=== PATIENT | male | born 1985 | race Caucasian/White ===

== ENCOUNTER 2020-05-27 09:00 | Outpatient (RCR) | payer OTHER, SELFPAY ==
--- NOTE | 2020-05-01 17:30 | PT.OPPOC ---
Physical, Occupational & Speech Therapy At [facility] Current Diagnoses Muscle wasting and atrophy, not elsewhere classified, left hand (05/01/20) Strain of intrinsic muscle, fascia and tendon of right thumb at wrist and hand level, initial encounter (05/01/20) Unspecified injury of unspecified wrist, hand and finger(s), initial encounter (05/01/20) Visit Care Team Role Provider Type Josselin Nelson MD Attending Provider Non-Staff Primary Care Provider Referring Provider Specialty: Medical Address: [address] [place] [address], [id number] Email: Plan Of Care PT-OP-T Assessment and Plan Start: 05/01/20 08:08 Freq: Status: Active Protocol: Document 05/01/20 10:35 LRN (Rec: 05/01/20 12:42 LRN [id number]) Physical Therapy Assessment Rehab Potential Rehabilitation Potential Excellent Evaluation Complexity Number of Personal Factors/Comorbidities 1-2 Number of Body Systems Impaired 4 or More Clinical Presentation at Evaluation Evolving Impairments Impairments Activity Tolerance,Pain,ROM, Soft Tissue Mobility,Strength Goals Four Impairment L hand pain onset with work activities. Short Term Goal (STG) Pt will report no L hand pain with piano playing. STG Duration 06/26/20 Continuum Of Care Manager Goal (LTG) Pt will improve activity tolerance to return back to work at his prior level of function. LTG Duration 07/30/20 Three Impairment Decreased L hand mobility Short Term Goal (STG) Improve L hand CMC jt mobility to be equal to R hand (CMC jt : extension is right - 30 deg' s, left is 22 deg's). STG Duration 06/05/20 Two Impairment Decreased L hand strength with atrophy of hand muscles. Short Term Goal (STG) Improve L hand strength to no less than 4/5 with pain no more than 2/5. STG Duration 06/05/20 Custodial Goal (LTG) Improve L hand cable dispatcher strength to be able to unscrew a clamp without pain or difficulty. LTG Duration 06/26/20 One Impairment Pt lacks self care program & HEP. Short Term Goal (STG) Pt will be educated in proper use of hot/cold and cold packs for pain management. Custodial Goal (LTG) Pt will be independent in a self care HEP to progress towards and maintain achievement of prior level of function. LTG Duration 07/30/20 Assessment Summary Assessment Pt presents with strain of his L thumb adductor muscle. At this time he does not appear to present with neurological symptoms, but further assessment of his neck and UE is needed. If progress is not made in 4 weeks I'd recommend tests to clear is cervical spine from involvement, if symptoms merit assessment, as well as assessment of neurological involvement. 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 The pt will benefit from skilled physical therapy, starting at 2x/week and decreasing to 1x/week, for education in proper hand care, progression of a strengthening and ROM program and progression towards independence on a home program . Physical Therapy Plan Frequency and Duration Frequency of Treatment 2x/Week Plan of Care Start Date 05/01/20 Plan of Care End Date 07/30/20 Therapeutic Interventions Therapeutic Interventions Home Exercise Program,Manual Therapy,Patient/Caregiver Education,Self-Care/Home Management,Soft Tissue Mobilization,Taping, Therapeutic Exercises Modalities Cold Pack/Ice Massage,Hot Packs,Paraffin Bath Next Visit Focus/Plan Next Note Type Treatment Note Next Visit Plan Assess cervical/UE neural involvement and check intrinsic strength. Recheck thumb CMC jt flex ROM and MCP flex/ext ROM. Initiate L hand , wrist, forearm, elbow strengthening, f/b stretch to Left: thumb flexors, Ghazal stretch, & wrist UD's & extensors (stretch into RD & flexion). STM to L hand ADD's, end with CP. HEP, I/S for H/C dips. Progress mccurdy/pincer cable dispatcher strengthening towards return to prior level. Educate further on use of CP. Plan of Care Dates Plan of Care Start Date 05/01/20 Plan of Care End Date 07/30/20 Electronically Signed by: Mely Alan, PT 05/03/20 [id number] Please Sign and Return: I have reviewed this Plan of Care and certify that the skilled therapy services above are required to meet the patient?s needs. Physician Signature Date Printed Name and Credentials Clinical Instructor Signature Printed Name and Credentials
--- NOTE | 2020-05-01 17:30 | PT.OIE ---
Current Diagnoses Muscle wasting and atrophy, not elsewhere classified, left hand (05/01/20) Strain of intrinsic muscle, fascia and tendon of right thumb at wrist and hand level, initial encounter (05/01/20) Unspecified injury of unspecified wrist, hand and finger(s), initial encounter (05/01/20) Past Medical History (Last Updated 01/30/18 @ 20:28 by Randi Kaur PA-C) Kidney stone (Chronic) Visit Care Team Role Provider Type Josselin Nelson MD Attending Provider Non-Staff Primary Care Provider Referring Provider Specialty: Medical Address: [address] [place] [address], [id number] Email: Physical Therapy Initial Evaluation PT-OP-A Visit Information Start: 05/01/20 08:08 Freq: Status: Active Protocol: Document 05/01/20 10:35 LRN (Rec: 05/01/20 12:42 LRN [id number]) Out-Patient Physical Therapy Visit Information Visit Information Visit Type Initial Evaluation Visit Start Time 10:35 Visit Stop Time 12:25 Total Visit Minutes 50 Visit Number 1 Evaluation Information Evaluation Date 05/01/20 Precautions Precautions None PT-OP-B Current Condition Start: 05/01/20 08:08 Freq: Status: Active Protocol: Document 05/01/20 10:35 LRN (Rec: 05/01/20 12:42 LRN [id number]) Current Condition History of Current Condition Onset Date 3-4 months ago Current Complaints 1/10 pain at L thumb IP jt, tender opposition laterally, dorsal. History of Current Condition Has good strength with opposition movement, but when flexing the IP joint he has no strength. R handed. 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 No loss of ROM or dexterity. Plays piano and has noticed if having pain it is at the L thumb IP joint and after long playing has pain at CMC jt into forearm. Prior Treatments and Tests none Future Testing and Treatments Planned MRI & Nerve conduction test. Developmental History Developmental History 2 yrs ago almost cut L thumb due to hitting saw and was told it nicked a tendon ( proximal to jt). He regained full use of thumb. Has sense of funny bone feeling between CMC and MCP jt. Seems to be double jointed (MCP jt pops backward or into positions). 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 L hand was having trouble opening it by end of day. As time progressed, L hand thumb was not being used and had lack of strength. No serious pain just dull ache in MCP jt and IP jt. Treatment Goals Patient/Caregiver Goals Pt goal is to be assessed and determine reason for problem. Inflammation pinching a nerve. Goal is to eliminate lack of strength or problem that is causing lack of strength. Prior Functional Status Baseline Function- ADL's Independent Baseline Function- Mobility Independent Baseline Function- Work/School No difficulty holding onto objects using L thumb. Could unscrew clamps at work. Current Functional Impairments (Reported) Functional Limitations- ADL's Can carry light objects. Washing dishes almost dropped glasses due to slipper and required holding tightly to object. 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 Compensates by not using L thumb and uses R side more. Can't unscrew clamps. 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 PT-OP-C Subjective Start: 05/01/20 08:08 Freq: Status: Active Protocol: Document 05/01/20 10:35 LRN (Rec: 05/03/20 12:03 LRN [id number]) OP-PT Pain Assessment Pain Assessment Grid Paper Pain Assessment Grid Completed Yes Location L hand Pain Location Details Left Thumb AD muscle and CMC joint Intensity 2 Scale Used Numeric (0 - 10) Description Aching Frequency Constant PT-OP-J Posture/Palpation/Skin Start: 05/01/20 08:08 Freq: Status: Active Protocol: Document 05/01/20 10:35 LRN (Rec: 05/03/20 12:03 LRN [id number]) Palpation Assessment Location L thumb AD Palpation Location L thumb AD muscle and CMC jt. Palpation Findings Tenderness Palpation Details Denies palpable pain in L forearm. PT-OP-K Range of Motion Start: 05/01/20 08:08 Freq: Status: Active Protocol: Document 05/01/20 10:35 LRN (Rec: 05/01/20 12:42 LRN [id number]) Wrist Goniometric Range of Motion Wrist Right Wrist ROM WFL Yes Ulnar Deviation Active (degrees) 20 Radial Deviation Active (degrees) 48 Left Wrist ROM WFL No Flexion Active (degrees) 68 Flexion Passive (degrees) 80 Ulnar Deviation Active (degrees) 25 Radial Deviation Active (degrees) 38 Thumb Goniometric Range of Motion Thumb Right MCP Flexion Active (degrees) 50 MCP Flexion Passive (degrees) 60 MCP Extension Active (0 degrees) 0 H Left Thumb ROM WFL No MCP Flexion Active (degrees) 60 MCP Flexion Passive (degrees) 90 Thumb ROM Limitations Comments L thumb MCP jt lacks 10 deg's extension to neutral. PT-OP-L Special Tests Start: 05/01/20 08:08 Freq: Status: Active Protocol: Document 05/01/20 10:35 LRN (Rec: 05/01/20 12:42 LRN [id number]) Special Tests Wrist/Hand Special Tests Phalens Test Results - bilaterally Grind Test of Thumb Test Results - bilaterally Ghazal's Test Results + bilaterally Comments Pain on radial side of wrist bilaterally. PT-OP-M Strength Start: 05/01/20 08:08 Freq: Status: Active Protocol: Document 05/01/20 10:35 LRN (Rec: 05/01/20 12:42 LRN [id number]) Elbow/Forearm Strength Elbow and Forearm Manual Muscle Testing Right Reason Not Measured WFL Left Reason Not Measured WFL Wrist Strength Wrist Manual Muscle Testing Right Reason Not Measured WFL Left Reason Not Measured WFL Finger/Thumb Strength Finger Manual Muscle Testing Right Thumb Reason Not Measured WFL Comments R thumb strength is 5/5 with all motions. Opposition strength is 5/5 for all fingers. Left Thumb Flexion (fingers C8) 4+ Good+ Extension (thumb C8) 5 Normal Adduction 3+ Fair+ Abduction (fingers T1) 4+ Good+ Comments Opposition strength is 5/5 for all fingers. Hand Transmission And Coordination Engineer/Pinch Strength Hand Dominance Hand Dominance Right Hand Strength Right Transmission And Coordination Engineer (lbs) 95 Tip Pinch (lbs) 11 Comments Tip pinch with index finger and thumb Left Transmission And Coordination Engineer (lbs) 75 Tip Pinch (lbs) 5 Comments Tip pinch with index finger and thumb PT-OP-Q Treatments Start: 05/01/20 08:08 Freq: Status: Active Protocol: Document 05/01/20 10:35 LRN (Rec: 05/01/20 12:42 LRN [id number]) Self-Care/Home Management Treatment Education Patient Education Home Exercise Program,Pain Management Other Education Discussed results of evaluation. Briefly discussed thumb ADD strengthening, resisting paper pull from felt hat flanging operator. Briefly discussed use of CP at home for pain management, precautions of using cold pack directly on skin and limiting to 10'. Recommended pt use small cold pack like a stroud stroud budy pack. PT-OP-T Assessment and Plan Start: 05/01/20 08:08 Freq: Status: Active Protocol: Document 05/01/20 10:35 LRN (Rec: 05/01/20 12:42 LRN [id number]) Physical Therapy Assessment Rehab Potential Rehabilitation Potential Excellent Evaluation Complexity Number of Personal Factors/Comorbidities 1-2 Number of Body Systems Impaired 4 or More Clinical Presentation at Evaluation Evolving Impairments Impairments Activity Tolerance,Pain,ROM, Soft Tissue Mobility,Strength Goals Four Impairment L hand pain onset with work activities. Short Term Goal (STG) Pt will report no L hand pain with piano playing. STG Duration 06/26/20 Halfway Goal (LTG) Pt will improve activity tolerance to return back to work at his prior level of function. LTG Duration 07/30/20 Three Impairment Decreased L hand mobility Short Term Goal (STG) Improve L hand CMC jt mobility to be equal to R hand (CMC jt : extension is right - 30 deg' s, left is 22 deg's). STG Duration 06/05/20 Two Impairment Decreased L hand strength with atrophy of hand muscles. Short Term Goal (STG) Improve L hand strength to no less than 4/5 with pain no more than 2/5. STG Duration 06/05/20 Halfway Goal (LTG) Improve L hand felt hat flanging operator strength to be able to unscrew a clamp without pain or difficulty. LTG Duration 06/26/20 One Impairment Pt lacks self care program & HEP. Short Term Goal (STG) Pt will be educated in proper use of hot/cold and cold packs for pain management. Gang Rider Goal (LTG) Pt will be independent in a self care HEP to progress towards and maintain achievement of prior level of function. LTG Duration 07/30/20 Assessment Summary Assessment Pt presents with strain of his L thumb adductor muscle. At this time he does not appear to present with neurological symptoms, but further assessment of his neck and UE is needed. If progress is not made in 4 weeks I'd recommend tests to clear is cervical spine from involvement, if symptoms merit assessment, as well as assessment of neurological involvement. 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 The pt will benefit from skilled physical therapy, starting at 2x/week and decreasing to 1x/week, for education in proper hand care, progression of a strengthening and ROM program and progression towards independence on a home program . Physical Therapy Plan Frequency and Duration Frequency of Treatment 2x/Week Plan of Care Start Date 05/01/20 Plan of Care End Date 07/30/20 Therapeutic Interventions Therapeutic Interventions Home Exercise Program,Manual Therapy,Patient/Caregiver Education,Self-Care/Home Management,Soft Tissue Mobilization,Taping, Therapeutic Exercises Modalities Cold Pack/Ice Massage,Hot Packs,Paraffin Bath Next Visit Focus/Plan Next Note Type Treatment Note Next Visit Plan Assess cervical/UE neural involvement and check intrinsic strength. Recheck thumb CMC jt flex ROM and MCP flex/ext ROM. Initiate L hand , wrist, forearm, elbow strengthening, f/b stretch to Left: thumb flexors, Ghazal stretch, & wrist UD's & extensors (stretch into RD & flexion). STM to L hand ADD's, end with CP. HEP, I/S for H/C dips. Progress mccurdy/pincer felt hat flanging operator strengthening towards return to prior level. Educate further on use of CP.
--- NOTE | 2020-05-06 18:02 | PT.OTN ---
Current Diagnoses Muscle wasting and atrophy, not elsewhere classified, left hand (05/06/20) Strain of intrinsic muscle, fascia and tendon of right thumb at wrist and hand level, initial encounter (05/06/20) Unspecified injury of unspecified wrist, hand and finger(s), initial encounter (05/06/20) Physical Therapy Treatment Note PT-OP-A Visit Information Start: 05/01/20 08:08 Freq: Status: Active Protocol: Document 05/06/20 10:36 LRN (Rec: 05/06/20 12:44 LRN [id number]) Out-Patient Physical Therapy Visit Information Visit Information Visit Type Treatment Note Visit Start Time 10:36 Visit Stop Time 11:20 Total Visit Minutes 44 Visit Number 2 Evaluation Information Evaluation Date 05/01/20 Precautions Precautions None PT-OP-B Current Condition Start: 05/01/20 08:08 Freq: Status: Active Protocol: Document 05/01/20 10:35 LRN (Rec: 05/01/20 12:42 LRN [id number]) Current Condition History of Current Condition Onset Date 3-4 months ago Current Complaints 1/10 pain at L thumb IP jt, tender opposition laterally, dorsal. History of Current Condition Has good strength with opposition movement, but when flexing the IP joint he has no strength. R handed. 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 No loss of ROM or dexterity. Plays piano and has noticed if having pain it is at the L thumb IP joint and after long playing has pain at CMC jt into forearm. Prior Treatments and Tests none Future Testing and Treatments Planned MRI & Nerve conduction test. Developmental History Developmental History 2 yrs ago almost cut L thumb due to hitting saw and was told it nicked a tendon ( proximal to jt). He regained full use of thumb. Has sense of funny bone feeling between CMC and MCP jt. Seems to be double jointed (MCP jt pops backward or into positions). 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 L hand was having trouble opening it by end of day. As time progressed, L hand thumb was not being used and had lack of strength. No serious pain just dull ache in MCP jt and IP jt. Treatment Goals Patient/Caregiver Goals Pt goal is to be assessed and determine reason for problem. Inflammation pinching a nerve. Goal is to eliminate lack of strength or problem that is causing lack of strength. Prior Functional Status Baseline Function- ADL's Independent Baseline Function- Mobility Independent Baseline Function- Work/School No difficulty holding onto objects using L thumb. Could unscrew clamps at work. Current Functional Impairments (Reported) Functional Limitations- ADL's Can carry light objects. Washing dishes almost dropped glasses due to slipper and required holding tightly to object. 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 Compensates by not using L thumb and uses R side more. Can't unscrew clamps. 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 PT-OP-C Subjective Start: 05/01/20 08:08 Freq: Status: Active Protocol: Document 05/06/20 10:36 LRN (Rec: 05/06/20 12:44 LRN [id number]) OP-PT Subjective Patient Comments Patient Comments Did paper (thumb AD strengthening) ex and felt the ms working, but no increase pain. Nerve conduction study approved and will be done in [place]. PT-OP-J Posture/Palpation/Skin Start: 05/01/20 08:08 Freq: Status: Active Protocol: Document 05/01/20 10:35 LRN (Rec: 05/03/20 12:03 LRN [id number]) Palpation Assessment Location L thumb AD Palpation Location L thumb AD muscle and CMC jt. Palpation Findings Tenderness Palpation Details Denies palpable pain in L forearm. PT-OP-K Range of Motion Start: 05/01/20 08:08 Freq: Status: Active Protocol: Document 05/06/20 10:36 LRN (Rec: 05/06/20 12:44 LRN [id number]) Wrist Goniometric Range of Motion Wrist Right Flexion Active (degrees) 68 Flexion Passive (degrees) 90 Extension Active (degrees) 64 Extension Passive (degrees) 90 Left Extension Active (degrees) 68 Extension Passive (degrees) 90 Thumb Goniometric Range of Motion Thumb Right Thumb ROM WFL Yes MCP Flexion Active (degrees) 56 MCP Extension Active (0 degrees) 0 H CMC Flexion Active (degrees) 16 CMC Extension Active (degrees) 14 Left Thumb ROM WFL No MCP Flexion Active (degrees) 50 MCP Flexion Passive (degrees) 90 MCP Extension Active (0 degrees) 0 H CMC Flexion Active (degrees) 4 CMC Extension Active (degrees) 24 PT-OP-L Special Tests Start: 05/01/20 08:08 Freq: Status: Active Protocol: Document 05/01/20 10:35 LRN (Rec: 05/01/20 12:42 LRN [id number]) Special Tests Wrist/Hand Special Tests Phalens Test Results - bilaterally Grind Test of Thumb Test Results - bilaterally Ghazal's Test Results + bilaterally Comments Pain on radial side of wrist bilaterally. PT-OP-M Strength Start: 05/01/20 08:08 Freq: Status: Active Protocol: Document 05/06/20 10:36 LRN (Rec: 05/06/20 12:44 LRN [id number]) Finger/Thumb Strength Finger Manual Muscle Testing Right Thumb Flexion (fingers C8) 5 Normal Extension (thumb C8) 5 Normal Adduction 5 Normal Abduction (fingers T1) 5 Normal Left Thumb Flexion (fingers C8) 5 Normal Extension (thumb C8) 4+ Good+ Adduction 5 Normal Abduction (fingers T1) 4+ Good+ Hand Pyrotechnic Mixer/Pinch Strength Hand Strength Right Comments Mccurdy MMT: (table top) is 5/ 5. Left Comments Mccurdy MMT: (table top) is 4- /5. PT-OP-Q Treatments Start: 05/01/20 08:08 Freq: Status: Active Protocol: Document 05/06/20 10:36 LRN (Rec: 05/06/20 12:44 LRN [id number]) Therapeutic Exercises Sitting Exercises Stretch into wrist flex Sitting Exercise Name Stretch into wrist flex Side left Reps/Minutes 10 x 6 Stretch into wrist ext Sitting Exercise Name Stretch into wrist ext Side left Reps/Minutes 10 x 6 Thumb ADD/AB stretching Sitting Exercise Name Stretch to L thumb AD/AB Side left Reps/Minutes 3' Thumb Flex stretch Sitting Exercise Name Thumb flex stretch with pressure applied at 1st phalanx distally Side left Reps/Minutes 20 x 6 Comments Modified Ghazal position (without wrist UD), ROM taken monalisa Wrist Ext Sitting Exercise Name Wrist ext Side bilateral Resistance 4# hand wgt Reps/Minutes 30x Wrist Flex Sitting Exercise Name Wrist Flex Side bilateral Equipment Used 4# hand wgt Reps/Minutes 30x Supination Sitting Exercise Name Supination Side bilateral Resistance 4# hand weight Reps/Minutes 30x Comments Tight in L extensor ms bellies in forearm Pronation Sitting Exercise Name Pronation Side bilateral Resistance 4# hand weight Reps/Minutes 30x Elbow Curls Sitting Exercise Name Elbow Curls Side bilateral Resistance 10# Equipment Used 10# hand wgt Reps/Minutes 30x Standing Exercises Stretch into RD Standing Exercise Name Stretch into RD Side left Reps/Minutes 10 x 6 Tricep Ext Standing Exercise Name Tricep ext with arms behind trunk and slight elbow flex/ ext Side right Resistance 7# hand wgt Reps/Minutes 30x Comments L thumb decreased hold pressure by end of reps PT-OP-T Assessment and Plan Start: 05/01/20 08:08 Freq: Status: Active Protocol: Document 05/06/20 10:36 LRN (Rec: 05/06/20 12:44 LRN [id number]) Physical Therapy Assessment Goals Four Impairment L hand pain onset with work activities. Short Term Goal (STG) Pt will report no L hand pain with piano playing. STG Duration 06/26/20 Manager Assembly Goal (LTG) Pt will improve activity tolerance to return back to work at his prior level of function. LTG Duration 07/30/20 Three Impairment Decreased L hand mobility ( Thumb: MCP flex 60 L, 50 R) Short Term Goal (STG) Improve L hand CMC jt mobility to be equal to R hand (CMC jt : extension is right - 30 deg' s, left is 22 deg's). (05/06/20: Thumb: CMC jt ( in deg's) flex is 4 L, 16 R, ext 24 L, 14 R; MCP flex 50 L, 56 R) STG Duration 06/05/20 Two Impairment Decreased L hand strength with atrophy of hand muscles. Short Term Goal (STG) Improve L hand strength to no less than 4/5 with pain no more than 2/5. (05/06/20: Intrinsic hand strength was 4+/5 R, 5/5 L) STG Duration 06/05/20 Manager Assembly Goal (LTG) Improve L hand piccolo mechanic strength to be able to unscrew a clamp without pain or difficulty. LTG Duration 06/26/20 One Impairment Pt lacks self care program & HEP. Short Term Goal (STG) Pt will be educated in proper use of hot/cold and cold packs for pain management. Manager Assembly Goal (LTG) Pt will be independent in a self care HEP to progress towards and maintain achievement of prior level of function. LTG Duration 07/30/20 Assessment Summary Assessment He presents with intrinsic weakness of the R hand. Tight in L extensor ms bellies in forearm after forearm exercises. Pt shows mild improvement in R thumb MCP jt mobility after therapy. He tolerated UE strengthening well without any R thumb pain onset; therefore it is doubtful he has cervical involvement. He did have discomfort in lateral distal forearm muscles. Physical Therapy Plan Frequency and Duration Frequency of Treatment 2x/Week Plan of Care Start Date 05/01/20 Plan of Care End Date 07/30/20 Next Visit Focus/Plan Next Note Type Treatment Note Next Visit Plan Check cervical/UE neural involvement and check intrinsic strength. Progress L hand, wrist, forearm, elbow strengthening, f/b stretch to Left: thumb flexors, Ghazal stretch, & wrist UD's & extensors (stretch into RD & flexion). STM to L hand ADD's, end with CP if needed. HEP, I/S for H/C dips. Progress mccurdy/pincer piccolo mechanic strengthening towards return to prior level. Educate further on use of CP.
--- NOTE | 2020-05-08 12:36 | PT.OTN ---
Current Diagnoses Muscle wasting and atrophy, not elsewhere classified, left hand (05/08/20) Strain of intrinsic muscle, fascia and tendon of right thumb at wrist and hand level, initial encounter (05/08/20) Unspecified injury of unspecified wrist, hand and finger(s), initial encounter (05/08/20) Physical Therapy Treatment Note PT-OP-A Visit Information Start: 05/01/20 08:08 Freq: Status: Active Protocol: Document 05/08/20 11:24 LRN (Rec: 05/08/20 12:34 LRN [id number]) Out-Patient Physical Therapy Visit Information Visit Information Visit Type Treatment Note Visit Start Time 11:24 Visit Stop Time 12:15 Total Visit Minutes 49 Visit Number 3 Evaluation Information Evaluation Date 05/01/20 Precautions Precautions None PT-OP-B Current Condition Start: 05/01/20 08:08 Freq: Status: Active Protocol: Document 05/01/20 10:35 LRN (Rec: 05/01/20 12:42 LRN [id number]) Current Condition History of Current Condition Onset Date 3-4 months ago Current Complaints 1/10 pain at L thumb IP jt, tender opposition laterally, dorsal. History of Current Condition Has good strength with opposition movement, but when flexing the IP joint he has no strength. R handed. 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 No loss of ROM or dexterity. Plays piano and has noticed if having pain it is at the L thumb IP joint and after long playing has pain at CMC jt into forearm. Prior Treatments and Tests none Future Testing and Treatments Planned MRI & Nerve conduction test. Developmental History Developmental History 2 yrs ago almost cut L thumb due to hitting saw and was told it nicked a tendon ( proximal to jt). He regained full use of thumb. Has sense of funny bone feeling between CMC and MCP jt. Seems to be double jointed (MCP jt pops backward or into positions). 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 L hand was having trouble opening it by end of day. As time progressed, L hand thumb was not being used and had lack of strength. No serious pain just dull ache in MCP jt and IP jt. Treatment Goals Patient/Caregiver Goals Pt goal is to be assessed and determine reason for problem. Inflammation pinching a nerve. Goal is to eliminate lack of strength or problem that is causing lack of strength. Prior Functional Status Baseline Function- ADL's Independent Baseline Function- Mobility Independent Baseline Function- Work/School No difficulty holding onto objects using L thumb. Could unscrew clamps at work. Current Functional Impairments (Reported) Functional Limitations- ADL's Can carry light objects. Washing dishes almost dropped glasses due to slipper and required holding tightly to object. 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 Compensates by not using L thumb and uses R side more. Can't unscrew clamps. 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 PT-OP-C Subjective Start: 05/01/20 08:08 Freq: Status: Active Protocol: Document 05/08/20 11:24 LRN (Rec: 05/08/20 12:34 LRN [id number]) OP-PT Subjective Patient Comments Patient Comments States he got pain in the L thumb doing paper pull exercise. PT-OP-J Posture/Palpation/Skin Start: 05/01/20 08:08 Freq: Status: Active Protocol: Document 05/01/20 10:35 LRN (Rec: 05/03/20 12:03 LRN [id number]) Palpation Assessment Location L thumb AD Palpation Location L thumb AD muscle and CMC jt. Palpation Findings Tenderness Palpation Details Denies palpable pain in L forearm. PT-OP-K Range of Motion Start: 05/01/20 08:08 Freq: Status: Active Protocol: Document 05/08/20 11:24 LRN (Rec: 05/08/20 12:34 LRN [id number]) Thumb Goniometric Range of Motion Thumb Right CMC Extension Active (degrees) 48 Left CMC Extension Active (degrees) 52 Thumb ROM Limitations Comments Active Thumb AB: 60 deg's bilaterally. CMC ext bilaterally measured with forearm in supination ( hand flat on table) vs with forearm in neutral. PT-OP-L Special Tests Start: 05/01/20 08:08 Freq: Status: Active Protocol: Document 05/01/20 10:35 LRN (Rec: 05/01/20 12:42 LRN [id number]) Special Tests Wrist/Hand Special Tests Phalens Test Results - bilaterally Grind Test of Thumb Test Results - bilaterally Ghazal's Test Results + bilaterally Comments Pain on radial side of wrist bilaterally. PT-OP-M Strength Start: 05/01/20 08:08 Freq: Status: Active Protocol: Document 05/06/20 10:36 LRN (Rec: 05/06/20 12:44 LRN [id number]) Finger/Thumb Strength Finger Manual Muscle Testing Right Thumb Flexion (fingers C8) 5 Normal Extension (thumb C8) 5 Normal Adduction 5 Normal Abduction (fingers T1) 5 Normal Left Thumb Flexion (fingers C8) 5 Normal Extension (thumb C8) 4+ Good+ Adduction 5 Normal Abduction (fingers T1) 4+ Good+ Hand Oracle Application Architect/Pinch Strength Hand Strength Right Comments Mccurdy MMT: (table top) is 5/ 5. Left Comments Mccurdy MMT: (table top) is 4- /5. PT-OP-Q Treatments Start: 05/01/20 08:08 Freq: Status: Active Protocol: Document 05/08/20 11:24 LRN (Rec: 05/08/20 12:34 LRN [id number]) Therapeutic Exercises Sitting Exercises Thumb AD strengthening Sitting Exercise Name Thumb AD w/Yellow Putty Side left Resistance Soft (Yellow) Putty Reps/Minutes 3' Comments Varied tension and strength by moving putty from distal to proximal to CMC. Thumb Flex strengthening Sitting Exercise Name Thumb Flex w/Putty Side left Resistance Firm (Blue) Putty Reps/Minutes 10x Comments v. cuing for painfree pressure Gripping Sitting Exercise Name Putty Gripping Side bilateral Resistance Firm (Blue) Putty Reps/Minutes 2' Comments Training needed for use of putty Stretch into wrist flex Sitting Exercise Name Stretch into wrist flex Side left Reps/Minutes 10 x 3 Stretch into wrist ext Sitting Exercise Name Stretch into wrist ext Side left Reps/Minutes 10 x 3 Thumb ADD/AB stretching Sitting Exercise Name Stretch to L thumb AD/AB Side left Reps/Minutes 2' Thumb Flex stretch Sitting Exercise Name Thumb flex stretch with pressure applied at 1st phalanx distally Side left Reps/Minutes 20 x 6 Comments Modified Ghazal position (without wrist UD), ROM taken monalisa Wrist Ext Sitting Exercise Name Wrist ext Side left Resistance Lev 2 T-Band Reps/Minutes 15x Wrist Flex Sitting Exercise Name Wrist Flex Side left Equipment Used Lev 2 T-Band Reps/Minutes 15x Comments Phy cuing for placement of T- Band on hand to max strengthening Supination Sitting Exercise Name Supination Side bilateral Resistance Lev 2 T-Band Reps/Minutes 15x Comments Phys & v cuing needed to determine appropriate positioning of T-Band for ex Pronation Sitting Exercise Name Pronation Side bilateral Resistance Lev 2 T-Band Reps/Minutes 15x Comments Phys & v cuing for proper positioning Self-Care/Home Management Treatment Education Patient Education Home Exercise Program Other Education Issued & reviewed HEP with appropriate strengths putty ( Yellow & Blue): I/s for strengthening gripping & thumb flex and stretch to thumb AD; Handouts for: Wrist flex, ext, UD, RD, sup, pron & stretch to wrist flexor. PT-OP-R Modalities Start: 05/01/20 08:08 Freq: Status: Active Protocol: Document 05/08/20 11:24 LRN (Rec: 05/08/20 12:34 LRN [id number]) Hot Pack/Cold Pack Treatment Cold Pack Location L hand Patient Position Sitting Treatment Duration (minutes) 5 Patient Tolerance Good PT-OP-T Assessment and Plan Start: 05/01/20 08:08 Freq: Status: Active Protocol: Document 05/08/20 11:24 LRN (Rec: 05/08/20 12:34 LRN [id number]) Physical Therapy Assessment Goals Four Impairment L hand pain onset with work activities. Short Term Goal (STG) Pt will report no L hand pain with piano playing. STG Duration 06/26/20 Principal Ios Developer Goal (LTG) Pt will improve activity tolerance to return back to work at his prior level of function. LTG Duration 07/30/20 Three Impairment Decreased L hand mobility ( Thumb: MCP flex 60 L, 50 R) Short Term Goal (STG) Improve L hand CMC jt mobility to be equal to R hand (CMC jt : extension is right - 30 deg' s, left is 22 deg's). (05/06/20: Thumb: CMC jt ( in deg's) flex is 4 L, 16 R, ext 24 L, 14 R; MCP flex 50 L, 56 R) STG Duration 06/05/20 Two Impairment Decreased L hand strength with atrophy of hand muscles. Short Term Goal (STG) Improve L hand strength to no less than 4/5 with pain no more than 2/5. (05/06/20: Intrinsic hand strength was 4+/5 R, 5/5 L) STG Duration 06/05/20 Principal Ios Developer Goal (LTG) Improve L hand legal instructor strength to be able to unscrew a clamp without pain or difficulty. LTG Duration 06/26/20 One Impairment Pt lacks self care program & HEP. Short Term Goal (STG) Pt will be educated in proper use of hot/cold and cold packs for pain management. Principal Ios Developer Goal (LTG) Pt will be independent in a self care HEP to progress towards and maintain achievement of prior level of function. LTG Duration 07/30/20 Progress Towards Goals Progress Comments Pt tolerates more strengthening before c/o L hand pain. Assessment Summary Assessment Pt had c/o L thumb pain along the ulnar border of the 1st phalanx with thumb AD using yellow putty. No pain with gripping or thumb flexion. Pt has tightness of intrinsic muscles, but appears to be improving because pt tolerates more ex without c/o pain. Pain localized to L thumb Adductors. Physical Therapy Plan Frequency and Duration Frequency of Treatment 2x/Week Plan of Care Start Date 05/01/20 Plan of Care End Date 07/30/20 Next Visit Focus/Plan Next Note Type Treatment Note Next Visit Plan Check cervical/UE neural involvement and add intrinsic strengthening (table top ex). Progress L hand, wrist, forearm, elbow strengthening, f/b stretch to Left: thumb flexors, Ghazal stretch, & wrist UD's & extensors ( stretch into RD & flexion). STM to L hand ADD's, end with CP if needed. HEP, I/S for H/ C dips. Progress mccurdy/ pincer legal instructor strengthening towards return to prior level. Educate further on use of CP .
--- NOTE | 2020-05-13 16:50 | PT.OTN ---
Current Diagnoses Muscle wasting and atrophy, not elsewhere classified, left hand (05/13/20) Strain of intrinsic muscle, fascia and tendon of right thumb at wrist and hand level, initial encounter (05/13/20) Unspecified injury of unspecified wrist, hand and finger(s), initial encounter (05/13/20) Physical Therapy Treatment Note PT-OP-A Visit Information Start: 05/01/20 08:08 Freq: Status: Active Protocol: Document 05/13/20 10:30 LRN (Rec: 05/13/20 11:21 LRN [id number]) Out-Patient Physical Therapy Visit Information Visit Information Visit Type Treatment Note Visit Start Time 10:30 Visit Stop Time 11:15 Total Visit Minutes 45 Visit Number 4 Evaluation Information Evaluation Date 05/01/20 Precautions Precautions None PT-OP-B Current Condition Start: 05/01/20 08:08 Freq: Status: Active Protocol: Document 05/01/20 10:35 LRN (Rec: 05/01/20 12:42 LRN [id number]) Current Condition History of Current Condition Onset Date 3-4 months ago Current Complaints 1/10 pain at L thumb IP jt, tender opposition laterally, dorsal. History of Current Condition Has good strength with opposition movement, but when flexing the IP joint he has no strength. R handed. 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 No loss of ROM or dexterity. Plays piano and has noticed if having pain it is at the L thumb IP joint and after long playing has pain at CMC jt into forearm. Prior Treatments and Tests none Future Testing and Treatments Planned MRI & Nerve conduction test. Developmental History Developmental History 2 yrs ago almost cut L thumb due to hitting saw and was told it nicked a tendon ( proximal to jt). He regained full use of thumb. Has sense of funny bone feeling between CMC and MCP jt. Seems to be double jointed (MCP jt pops backward or into positions). 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 L hand was having trouble opening it by end of day. As time progressed, L hand thumb was not being used and had lack of strength. No serious pain just dull ache in MCP jt and IP jt. Treatment Goals Patient/Caregiver Goals Pt goal is to be assessed and determine reason for problem. Inflammation pinching a nerve. Goal is to eliminate lack of strength or problem that is causing lack of strength. Prior Functional Status Baseline Function- ADL's Independent Baseline Function- Mobility Independent Baseline Function- Work/School No difficulty holding onto objects using L thumb. Could unscrew clamps at work. Current Functional Impairments (Reported) Functional Limitations- ADL's Can carry light objects. Washing dishes almost dropped glasses due to slipper and required holding tightly to object. 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 Compensates by not using L thumb and uses R side more. Can't unscrew clamps. 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 PT-OP-C Subjective Start: 05/01/20 08:08 Freq: Status: Active Protocol: Document 05/13/20 10:30 LRN (Rec: 05/13/20 16:18 LRN [id number]) OP-PT Subjective Patient Comments Patient Comments Pt states he noted onset of tingling in the L thumb and pain in the area of the wrist extensors to the elbow. PT-OP-J Posture/Palpation/Skin Start: 05/01/20 08:08 Freq: Status: Active Protocol: Document 05/01/20 10:35 LRN (Rec: 05/03/20 12:03 LRN [id number]) Palpation Assessment Location L thumb AD Palpation Location L thumb AD muscle and CMC jt. Palpation Findings Tenderness Palpation Details Denies palpable pain in L forearm. PT-OP-K Range of Motion Start: 05/01/20 08:08 Freq: Status: Active Protocol: Document 05/08/20 11:24 LRN (Rec: 05/08/20 12:34 LRN [id number]) Thumb Goniometric Range of Motion Thumb Right CMC Extension Active (degrees) 48 Left CMC Extension Active (degrees) 52 Thumb ROM Limitations Comments Active Thumb AB: 60 deg's bilaterally. CMC ext bilaterally measured with forearm in supination ( hand flat on table) vs with forearm in neutral. PT-OP-L Special Tests Start: 05/01/20 08:08 Freq: Status: Active Protocol: Document 05/01/20 10:35 LRN (Rec: 05/01/20 12:42 LRN [id number]) Special Tests Wrist/Hand Special Tests Phalens Test Results - bilaterally Grind Test of Thumb Test Results - bilaterally Ghazal's Test Results + bilaterally Comments Pain on radial side of wrist bilaterally. PT-OP-M Strength Start: 05/01/20 08:08 Freq: Status: Active Protocol: Document 05/06/20 10:36 LRN (Rec: 05/06/20 12:44 LRN [id number]) Finger/Thumb Strength Finger Manual Muscle Testing Right Thumb Flexion (fingers C8) 5 Normal Extension (thumb C8) 5 Normal Adduction 5 Normal Abduction (fingers T1) 5 Normal Left Thumb Flexion (fingers C8) 5 Normal Extension (thumb C8) 4+ Good+ Adduction 5 Normal Abduction (fingers T1) 4+ Good+ Hand Memorial Mason/Pinch Strength Hand Strength Right Comments Mccurdy MMT: (table top) is 5/ 5. Left Comments Mccurdy MMT: (table top) is 4- /5. PT-OP-Q Treatments Start: 05/01/20 08:08 Freq: Status: Active Protocol: Document 05/13/20 10:30 LRN (Rec: 05/13/20 11:21 LRN [id number]) Therapeutic Exercises Sitting Exercises Thumb AD on towel Sitting Exercise Name L Thumb AD - twisting of towel Reps/Minutes 3' Comments Phy cuing to bring awareness of us of L thumb AD Thumb AD strengthening Sitting Exercise Name Thumb AD w/towel - 2 layers Side left Resistance towel Reps/Minutes 2' Comments Varied tension and strength Stretch into wrist flex Sitting Exercise Name Stretch into wrist flex Side left Reps/Minutes 10 x 3 Stretch into wrist ext Sitting Exercise Name Stretch into wrist ext Side left Reps/Minutes 2' Thumb ADD/AB stretching Sitting Exercise Name Stretch to L thumb AD/AB Side left Reps/Minutes 2' Thumb Flex stretch Sitting Exercise Name Thumb flex stretch with pressure applied at 1st phalanx distally Side left Reps/Minutes 20 x 6 Comments Modified Ghazal position (without wrist UD), ROM taken monalisa Wrist Ext Sitting Exercise Name Wrist ext Side bilateral Resistance 4 Reps/Minutes 10x Comments L forearm shaking after 8 reps . Wrist Flex Sitting Exercise Name Wrist Flex Side bilateral Equipment Used 4# Reps/Minutes 10x Comments Start of fatigue @ 7 reps Supination Sitting Exercise Name Supination Side bilateral Resistance 3# L, 4# R Reps/Minutes 10x Comments Phys & v cuing needed to determine appropriate positioning of T-Band for ex Pronation Sitting Exercise Name Pronation Side bilateral Resistance 3# L, 4# R Reps/Minutes 10x Comments Phys & v cuing for proper positioning Elbow Curls Sitting Exercise Name Elbow Curls - Standing Side bilateral Resistance 10# Equipment Used 10# hand wgt in each hand Reps/Minutes 10x Standing Exercises Tricep Ext Standing Exercise Name Tricep ext with arms behind trunk and slight elbow flex/ ext Side bilateral Resistance 5 & 8# hand wgt Reps/Minutes 10x, 10x 2 respectively Comments No L thumb pain or weakness Manual Therapy Treatment Soft Tissue Mobilization L thumb and wrist flexors Body Location L forearm Mobilization Type Strumming Intensity/Depth Moderate Body Position Sitting Manual Traction Cervical Details C6, C7 manual traction Body Position Supine Reps/Duration 4' Comments Helped reduce numbness sensation in the L thumb, but remained decreased sensation on the lateral side of the thumb between MCP and IP joint . PT-OP-R Modalities Start: 05/01/20 08:08 Freq: Status: Active Protocol: Document 05/08/20 11:24 LRN (Rec: 05/08/20 12:34 LRN [id number]) Hot Pack/Cold Pack Treatment Cold Pack Location L hand Patient Position Sitting Treatment Duration (minutes) 5 Patient Tolerance Good PT-OP-T Assessment and Plan Start: 05/01/20 08:08 Freq: Status: Active Protocol: Document 05/13/20 10:30 LRN (Rec: 05/13/20 11:21 LRN [id number]) Physical Therapy Assessment Goals Four Impairment L hand pain onset with work activities. Short Term Goal (STG) Pt will report no L hand pain with piano playing. STG Duration 06/26/20 Diesel Engine Fitter Goal (LTG) Pt will improve activity tolerance to return back to work at his prior level of function. LTG Duration 07/30/20 Three Impairment Decreased L hand mobility ( Thumb: MCP flex 60 L, 50 R) Short Term Goal (STG) Improve L hand CMC jt mobility to be equal to R hand (CMC jt : extension is right - 30 deg' s, left is 22 deg's). (05/06/20: Thumb: CMC jt ( in deg's) flex is 4 L, 16 R, ext 24 L, 14 R; MCP flex 50 L, 56 R) STG Duration 06/05/20 Two Impairment Decreased L hand strength with atrophy of hand muscles. Short Term Goal (STG) Improve L hand strength to no less than 4/5 with pain no more than 2/5. (05/06/20: Intrinsic hand strength was 4+/5 R, 5/5 L) STG Duration 06/05/20 Diesel Engine Fitter Goal (LTG) Improve L hand ethylene plant operator strength to be able to unscrew a clamp without pain or difficulty. LTG Duration 06/26/20 One Impairment Pt lacks self care program & HEP. Short Term Goal (STG) Pt will be educated in proper use of hot/cold and cold packs for pain management. Diesel Engine Fitter Goal (LTG) Pt will be independent in a self care HEP to progress towards and maintain achievement of prior level of function. LTG Duration 07/30/20 Assessment Summary Assessment Pt had symptom onset of decreased sensation of L thumb after hand weight exercise. Some relief of pain with cervical traction (targeting C6, C7) and later with axial compression; therefore conflicting outcomes with C. tx vs compression does not rule in/out cervical involvement. Pt thumb AD and intrinsics appear weak. Physical Therapy Plan Frequency and Duration Frequency of Treatment 2x/Week Plan of Care Start Date 05/01/20 Plan of Care End Date 07/30/20 Other Referrals/Consults Referrals/Consults Recommended EMG nerve conduction study due to ms wasting of L thumb AD's . Next Visit Focus/Plan Next Note Type Treatment Note Next Visit Plan Check thumb AB ROM.Monitor for cervical/UE neural involvement. Check along wrist extensors for possible median nerve entrapment. Add intrinsic manual resistive strengthening (table top ex) and gladys strengthening of MCP joint to IP joint. Progress L hand (thumb sweeps, and ext with rubber band), wrist, forearm, elbow strengthening, f/b stretch to Left: thumb flexors, Ghazal stretch, & wrist UD's & extensors ( stretch into RD & flexion). STM to L hand ADD's, end with CP if needed. HEP, I/S for CONTRAST BATHS. Progress mccurdy (lumbricals)/pincer ethylene plant operator, & intrinsics (PAD, DAB) strengthening towards return to prior level.
--- NOTE | 2020-05-15 17:22 | PT.OTN ---
Current Diagnoses Muscle wasting and atrophy, not elsewhere classified, left hand (05/15/20) Strain of intrinsic muscle, fascia and tendon of right thumb at wrist and hand level, initial encounter (05/15/20) Unspecified injury of unspecified wrist, hand and finger(s), initial encounter (05/15/20) Physical Therapy Treatment Note PT-OP-A Visit Information Start: 05/01/20 08:08 Freq: Status: Active Protocol: Document 05/15/20 10:36 LRN (Rec: 05/15/20 11:23 LRN [id number]) Out-Patient Physical Therapy Visit Information Visit Information Visit Start Time 10:36 Visit Stop Time 11:21 Total Visit Minutes 45 Visit Number 5 Evaluation Information Evaluation Date 05/01/20 Precautions Precautions None PT-OP-B Current Condition Start: 05/01/20 08:08 Freq: Status: Active Protocol: Document 05/01/20 10:35 LRN (Rec: 05/01/20 12:42 LRN [id number]) Current Condition History of Current Condition Onset Date 3-4 months ago Current Complaints 1/10 pain at L thumb IP jt, tender opposition laterally, dorsal. History of Current Condition Has good strength with opposition movement, but when flexing the IP joint he has no strength. 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 No loss of ROM or dexterity. Plays piano and has noticed if having pain it is at the L thumb IP joint and after long playing has pain at CMC jt into forearm. Prior Treatments and Tests none Future Testing and Treatments Planned MRI & Nerve conduction test. Developmental History Developmental History 2 yrs ago almost cut L thumb due to hitting saw and was told it nicked a tendon ( proximal to jt). He regained full use of thumb. Has sense of funny bone feeling between CMC and MCP jt. Seems to be double jointed (MCP jt pops backward or into positions). 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 L hand was having trouble opening it by end of day. As time progressed, L hand thumb was not being used and had lack of strength. No serious pain just dull ache in MCP jt and IP jt. Treatment Goals Patient/Caregiver Goals Pt goal is to be assessed and determine reason for problem. Inflammation pinching a nerve. Goal is to eliminate lack of strength or problem that is causing lack of strength. Prior Functional Status Baseline Function- ADL's Independent Baseline Function- Mobility Independent Baseline Function- Work/School No difficulty holding onto objects using L thumb. Could unscrew clamps at work. Current Functional Impairments (Reported) Functional Limitations- ADL's Can carry light objects. Washing dishes almost dropped glasses due to slipper and required holding tightly to object. 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 Compensates by not using L thumb and uses R side more. Can't unscrew clamps. 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 PT-OP-C Subjective Start: 05/01/20 08:08 Freq: Status: Active Protocol: Document 05/15/20 10:36 LRN (Rec: 05/15/20 11:23 LRN [id number]) OP-PT Subjective Patient Comments Patient Comments Nerve conduction study test scheduled for next week. States he was doing some exerise with his thumb he was moving his L thumb from neutral into an AD position and felt a pop in his thumb with pain and now he has pain in the proximal region of the L thumb 2nd phalanx near the MCP joint. PT-OP-J Posture/Palpation/Skin Start: 05/01/20 08:08 Freq: Status: Active Protocol: Document 05/01/20 10:35 LRN (Rec: 05/03/20 12:03 LRN [id number]) Palpation Assessment Location L thumb AD Palpation Location L thumb AD muscle and CMC jt. Palpation Findings Tenderness Palpation Details Denies palpable pain in L forearm. PT-OP-K Range of Motion Start: 05/01/20 08:08 Freq: Status: Active Protocol: Document 05/08/20 11:24 LRN (Rec: 05/08/20 12:34 LRN [id number]) Thumb Goniometric Range of Motion Thumb Right CMC Extension Active (degrees) 48 Left CMC Extension Active (degrees) 52 Thumb ROM Limitations Comments Active Thumb AB: 60 deg's bilaterally. CMC ext bilaterally measured with forearm in supination ( hand flat on table) vs with forearm in neutral. PT-OP-L Special Tests Start: 08/06/20 08:08 Freq: Status: Active Protocol: Document 05/01/20 10:35 LRN (Rec: 05/01/20 12:42 LRN [id number]) Special Tests Wrist/Hand Special Tests Phalens Test Results - bilaterally Grind Test of Thumb Test Results - bilaterally Ghazal's Test Results + bilaterally Comments Pain on radial side of wrist bilaterally. PT-OP-M Strength Start: 05/01/20 08:08 Freq: Status: Active Protocol: Document 05/06/20 10:36 LRN (Rec: 05/06/20 12:44 LRN [id number]) Finger/Thumb Strength Finger Manual Muscle Testing Right Thumb Flexion (fingers C8) 5 Normal Extension (thumb C8) 5 Normal Adduction 5 Normal Abduction (fingers T1) 5 Normal Left Thumb Flexion (fingers C8) 5 Normal Extension (thumb C8) 4+ Good+ Adduction 5 Normal Abduction (fingers T1) 4+ Good+ Hand Instructional Leader/Pinch Strength Hand Strength Right Comments Mccurdy MMT: (table top) is 5/ 5. Left Comments Mccurdy MMT: (table top) is 4- /5. PT-OP-Q Treatments Start: 05/01/20 08:08 Freq: Status: Active Protocol: Document 05/15/20 10:36 LRN (Rec: 05/15/20 11:23 LRN [id number]) Therapeutic Exercises Sitting Exercises Tendon [place] finger curl to table top Sitting Exercise Name Tendon [place] finger curl to table top. Reps/Minutes 2' Tendon [place] finger curls Sitting Exercise Name Tendon Glides Finger Flexion Side left Reps/Minutes 2' Tendon [place] Table top Sitting Exercise Name Tendon [place] Table top Side left Reps/Minutes 2' Opposition straight thumb Sitting Exercise Name Opposition with straight thumb tip to tip and thumb to MCP 5th digit. Side left Opposition tip to tip Sitting Exercise Name Thumb tip to finger tip w/ controlled flex at MCP joint Side left Reps/Minutes 4' Thumb AD strengthening Sitting Exercise Name Thumb AD active Side left Reps/Minutes 2' Thumb Flex strengthening Sitting Exercise Name Thumb Flex of MCP & isolated IP jt w/MCP neutral Reps/Minutes 4' Stretch into wrist flex Sitting Exercise Name Stretch into wrist flex Side left Reps/Minutes 2' Stretch into wrist ext Sitting Exercise Name Stretch into wrist ext Side left Reps/Minutes 2' Wrist Ext Sitting Exercise Name Wrist ext with thumb gripping Side bilateral Resistance 4 Equipment Used 4# Reps/Minutes 10x2 Wrist Flex Sitting Exercise Name Wrist Flex with thumb gripping Side bilateral Equipment Used 5# Reps/Minutes 10x Comments Start of fatigue @ 7 reps Supination Sitting Exercise Name Supination with thumb gripping Side bilateral Resistance 3# L, 4# R Reps/Minutes 10x Comments Phys & v cuing needed to determine appropriate positioning of T-Band for ex Pronation Sitting Exercise Name Pronation with thumb gripping Side bilateral Resistance 3# L, 4# R Reps/Minutes 10x Comments Phys & v cuing for proper positioning Standing Exercises Stretch into UD Standing Exercise Name UD stretch Side left Reps/Minutes 10 x 6 Comments Initial physical cuing needed. Bicep Curl Standing Exercise Name L Bicep Curl Side bilateral Reps/Minutes 10 x Comments Phys cuing for 3 different forearm positions. Stretch into RD Standing Exercise Name UD stretch Side left Reps/Minutes 10 hold x 6 Comments Phys cuing needed Tricep Ext Standing Exercise Name Tricep ext with arms behind trunk and slight elbow flex/ ext Side bilateral Resistance 5 & 8# hand wgt Reps/Minutes 10x, 10x 2 respectively Comments No L thumb pain or weakness Manual Therapy Treatment Manual Techniques MWM L thumb, Type CW rotation L thumb 1st & 2nd phalanx with thumb AD, f/b unassisted AD Body Location L thumb Body Position Sitting Reps/Duration 10 x 2 each Comments Extra time taken to obtain proper Mob with Movement (MWM) to allow painfree L thumb AD. 1st time unable to obtaing painfree active thumb AD, but 2nd time was able to end with painfree thumb AD. PT-OP-R Modalities Start: 05/01/20 08:08 Freq: Status: Active Protocol: Document 05/15/20 10:36 LRN (Rec: 05/15/20 17:20 LRN [id number]) Hot Pack/Cold Pack Treatment Cold Pack Location L hand Patient Position Sitting Treatment Duration (minutes) 10 Patient Tolerance Good Comments Cryotherapy during arm strengthening ex's. No c/o pain s/p therapy. PT-OP-T Assessment and Plan Start: 05/01/20 08:08 Freq: Status: Active Protocol: Document 05/15/20 10:36 LRN (Rec: 05/15/20 17:20 LRN [id number]) Physical Therapy Assessment Goals Four Impairment L hand pain onset with work activities. Short Term Goal (STG) Pt will report no L hand pain with piano playing. STG Duration 06/26/20 Penitentiary Goal (LTG) Pt will improve activity tolerance to return back to work at his prior level of function. LTG Duration 07/30/20 Three Impairment Decreased L hand mobility ( Thumb: MCP flex 60 L, 50 R) Short Term Goal (STG) Improve L hand CMC jt mobility to be equal to R hand (CMC jt : extension is right - 30 deg' s, left is 22 deg's). (05/06/20: Thumb: CMC jt ( in deg's) flex is 4 L, 16 R, ext 24 L, 14 R; MCP flex 50 L, 56 R) STG Duration 06/05/20 Two Impairment Decreased L hand strength with atrophy of hand muscles. Short Term Goal (STG) Improve L hand strength to no less than 4/5 with pain no more than 2/5. (05/06/20: Intrinsic hand strength was 4+/5 R, 5/5 L) STG Duration 06/05/20 Software Design Engineer Goal (LTG) Improve L hand sugar grinder strength to be able to unscrew a clamp without pain or difficulty. LTG Duration 06/26/20 One Impairment Pt lacks self care program & HEP. Short Term Goal (STG) Pt will be educated in proper use of hot/cold and cold packs for pain management. Software Design Engineer Goal (LTG) Pt will be independent in a self care HEP to progress towards and maintain achievement of prior level of function. LTG Duration 07/30/20 Progress Towards Goals Progress Comments Possible new injury with pop and pain at the L thumb MCP joint limiting tolerance to thumb AD. Assessment Summary Assessment Pt has new onset of increased mobility of L MCP joint with medial glide, possibly associated to new complaint of pop after thumb strengthening exercise. Pt may need return to MD for possible imaging and assessment of thumb stability and possible injury to MCP medial ligaments. Pt having pain with thumb AD only, not with thumb ext, flex, or opposition. Pt is still able to grasp hand weights without an increase in pain. Physical Therapy Plan Frequency and Duration Frequency of Treatment 2x/Week Plan of Care Start Date 05/01/20 Plan of Care End Date 07/30/20 Next Visit Focus/Plan Next Note Type Treatment Note Next Visit Plan Check thumb AB ROM and thumb AD tolerance. Check sugar grinder strength and refer pt back to MD if increased pain and instability. ?Cervical/UE neural involvement. Check along wrist extensors for possible median nerve entrapment. Add intrinsic manual resistive strengthening (table top ex) and gladys strengthening of MCP joint to IP joint. Progress L hand ( thumb sweeps, and ext with rubber band), wrist, forearm, elbow strengthening, f/b stretch to Left: thumb flexors, Ghazal stretch, & wrist UD's & extensors ( stretch into RD & flexion). STM to L hand ADD's, end with CP if needed. HEP, I/S for CONTRAST BATHS. Progress mccurdy (lumbricals)/pincer sugar grinder, & intrinsics (PAD, DAB) strengthening towards return to prior level.
--- NOTE | 2020-05-20 16:35 | PT.OTN ---
Current Diagnoses Muscle wasting and atrophy, not elsewhere classified, left hand (05/20/20) Strain of intrinsic muscle, fascia and tendon of right thumb at wrist and hand level, initial encounter (05/20/20) Unspecified injury of unspecified wrist, hand and finger(s), initial encounter (05/20/20) Physical Therapy Treatment Note PT-OP-A Visit Information Start: 05/01/20 08:08 Freq: Status: Active Protocol: Document 05/20/20 15:08 LRN (Rec: 05/20/20 16:29 LRN [id number]) Out-Patient Physical Therapy Visit Information Visit Information Visit Type Treatment Note Visit Start Time 15:08 Visit Stop Time 15:58 Total Visit Minutes 50 Visit Number 6 Evaluation Information Evaluation Date 05/01/20 Precautions Precautions None PT-OP-B Current Condition Start: 05/01/20 08:08 Freq: Status: Active Protocol: Document 05/01/20 10:35 LRN (Rec: 05/01/20 12:42 LRN [id number]) Current Condition History of Current Condition Onset Date 3-4 months ago Current Complaints 1/10 pain at L thumb IP jt, tender opposition laterally, dorsal. History of Current Condition Has good strength with opposition movement, but when flexing the IP joint he has no strength. 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 No loss of ROM or dexterity. Plays piano and has noticed if having pain it is at the L thumb IP joint and after long playing has pain at CMC jt into forearm. Prior Treatments and Tests none Future Testing and Treatments Planned MRI & Nerve conduction test. Developmental History Developmental History 2 yrs ago almost cut L thumb due to hitting saw and was told it nicked a tendon ( proximal to jt). He regained full use of thumb. Has sense of funny bone feeling between CMC and MCP jt. Seems to be double jointed (MCP jt pops backward or into positions). 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 L hand was having trouble opening it by end of day. As time progressed, L hand thumb was not being used and had lack of strength. No serious pain just dull ache in MCP jt and IP jt. Treatment Goals Patient/Caregiver Goals Pt goal is to be assessed and determine reason for problem. Inflammation pinching a nerve. Goal is to eliminate lack of strength or problem that is causing lack of strength. Prior Functional Status Baseline Function- ADL's Independent Baseline Function- Mobility Independent Baseline Function- Work/School No difficulty holding onto objects using L thumb. Could unscrew clamps at work. Current Functional Impairments (Reported) Functional Limitations- ADL's Can carry light objects. Washing dishes almost dropped glasses due to slipper and required holding tightly to object. 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 Compensates by not using L thumb and uses R side more. Can't unscrew clamps. 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 PT-OP-C Subjective Start: 05/01/20 08:08 Freq: Status: Active Protocol: Document 05/20/20 15:08 LRN (Rec: 05/20/20 16:29 LRN [id number]) OP-PT Subjective Patient Comments Patient Comments L thumb has been sore, has been icing it 2x/day. Aching all the time. PT-OP-J Posture/Palpation/Skin Start: 05/01/20 08:08 Freq: Status: Active Protocol: Document 05/01/20 10:35 LRN (Rec: 05/03/20 12:03 LRN [id number]) Palpation Assessment Location L thumb AD Palpation Location L thumb AD muscle and CMC jt. Palpation Findings Tenderness Palpation Details Denies palpable pain in L forearm. PT-OP-K Range of Motion Start: 05/01/20 08:08 Freq: Status: Active Protocol: Document 05/20/20 15:08 LRN (Rec: 05/20/20 16:29 LRN [id number]) Thumb Goniometric Range of Motion Thumb Right Thumb ROM WFL Yes MCP Flexion Active (degrees) 58 IP Flexion Active (degrees) 58 CMC Extension Active (degrees) 52 Opposition to 5th Digit Base (cm) 0 Left Thumb ROM WFL No MCP Flexion Active (degrees) 66 IP Flexion Active (degrees) 56 CMC Flexion Active (degrees) 10 CMC Extension Active (degrees) 56 Opposition to 5th Digit Base (cm) 0 Thumb ROM Limitations Comments Left CMC AB: 54 PT-OP-L Special Tests Start: 05/01/20 08:08 Freq: Status: Active Protocol: Document 05/01/20 10:35 LRN (Rec: 05/01/20 12:42 LRN [id number]) Special Tests Wrist/Hand Special Tests Phalens Test Results - bilaterally Grind Test of Thumb Test Results - bilaterally Ghazal's Test Results + bilaterally Comments Pain on radial side of wrist bilaterally. PT-OP-M Strength Start: 05/01/20 08:08 Freq: Status: Active Protocol: Document 05/20/20 15:08 LRN (Rec: 05/20/20 16:29 LRN [id number]) Finger/Thumb Strength Finger Manual Muscle Testing Right Thumb Flexion (fingers C8) 5 Normal Extension (thumb C8) 5 Normal Adduction 5 Normal Abduction (fingers T1) 5 Normal Left Thumb Flexion (fingers C8) 5 Normal Extension (thumb C8) 4+ Good+ Adduction 4- Good- Abduction (fingers T1) 4- Good- Hand Retail Reset Merchandiser/Pinch Strength Hand Dominance Hand Dominance Right Hand Strength Right Retail Reset Merchandiser (lbs) 68 Comments Retail Reset Merchandiser 3 trials (lbs): 75, 65, 65 Left Retail Reset Merchandiser (lbs) 77 Comments Retail Reset Merchandiser 3 trials (lbs): 85, 80, 65. PT-OP-Q Treatments Start: 05/01/20 08:08 Freq: Status: Active Protocol: Document 05/20/20 15:08 LRN (Rec: 05/20/20 16:29 LRN [id number]) Therapeutic Exercises Sitting Exercises Tendon [place] finger curl to table top Sitting Exercise Name Tendon [place] finger curl to table top. Reps/Minutes 2' Tendon [place] finger curls Sitting Exercise Name Tendon Glides Finger Flexion Side left Reps/Minutes 2' Tendon [place] Table top Sitting Exercise Name Tendon [place] Table top Side left Reps/Minutes 2' Opposition straight thumb Sitting Exercise Name Opposition with straight thumb tip to tip and thumb to MCP 5th digit. Side left Opposition tip to tip Sitting Exercise Name Thumb tip to finger tip w/ controlled flex at MCP joint Side left Reps/Minutes 4' Thumb AD strengthening Sitting Exercise Name Thumb AD active Side left Reps/Minutes 2' Thumb Flex strengthening Sitting Exercise Name Thumb Flex of MCP & isolated IP jt w/MCP neutral Reps/Minutes 4' Stretch into wrist flex Sitting Exercise Name Stretch into wrist flex Side left Reps/Minutes 2' Stretch into wrist ext Sitting Exercise Name Stretch into wrist ext Side left Reps/Minutes 2' Thumb ADD/AB stretching Sitting Exercise Name Stretch to L thumb AD/AB Side left Reps/Minutes 2' Wrist Ext Sitting Exercise Name Wrist ext with thumb gripping Side bilateral Resistance 4 Equipment Used 4# Reps/Minutes 10x 3 Comments Burning at L forearm with ex Wrist Flex Sitting Exercise Name Wrist Flex with thumb gripping Side bilateral Equipment Used 5# Reps/Minutes 10x Supination Sitting Exercise Name Supination with thumb gripping Side bilateral Resistance 3# L, 4# R Reps/Minutes 10x 2 Comments V cuing needed to determine appropriate positioning Pronation Sitting Exercise Name Pronation with thumb gripping Side bilateral Resistance 3# L, 4# R Reps/Minutes 10x 2 Comments V cuing for proper positioning Elbow Curls Sitting Exercise Name Elbow curls Side bilateral Reps/Minutes 10x 1 PT-OP-R Modalities Start: 05/01/20 08:08 Freq: Status: Active Protocol: Document 05/15/20 10:36 LRN (Rec: 05/15/20 17:20 LRN [id number]) Hot Pack/Cold Pack Treatment Cold Pack Location L hand Patient Position Sitting Treatment Duration (minutes) 10 Patient Tolerance Good Comments Cryotherapy during arm strengthening ex's. No c/o pain s/p therapy. PT-OP-T Assessment and Plan Start: 05/01/20 08:08 Freq: Status: Active Protocol: Document 05/20/20 15:08 LRN (Rec: 05/20/20 16:29 LRN [id number]) Physical Therapy Assessment Goals Four Impairment L hand pain onset with work activities. Short Term Goal (STG) Pt will report no L hand pain with piano playing. STG Duration 06/26/20 Washing Machine Loader And Puller Goal (LTG) Pt will improve activity tolerance to return back to work at his prior level of function. LTG Duration 07/30/20 Three Impairment Decreased L hand mobility ( Thumb: MCP flex 60 L, 50 R) Short Term Goal (STG) Improve L hand CMC jt mobility to be equal to R hand (CMC jt : extension is right - 30 deg' s, left is 22 deg's). (05/06/20: Thumb: CMC jt ( in deg's) flex is 4 L, 16 R, ext 24 L, 14 R; MCP flex 50 L, 56 R) STG Duration 06/05/20 Two Impairment Decreased L hand strength with atrophy of hand muscles. Short Term Goal (STG) Improve L hand strength to no less than 4/5 with pain no more than 2/5. (05/06/20: Intrinsic hand strength was 4+/5 R, 5/5 L) STG Duration 06/05/20 Group Home Goal (LTG) Improve L hand manager of pharmacy strength to be able to unscrew a clamp without pain or difficulty. LTG Duration 06/26/20 One Impairment Pt lacks self care program & HEP. Short Term Goal (STG) Pt will be educated in proper use of hot/cold and cold packs for pain management. Group Home Goal (LTG) Pt will be independent in a self care HEP to progress towards and maintain achievement of prior level of function. LTG Duration 07/30/20 Progress Towards Goals Progress Comments Very slight improvement in L hand manager of pharmacy strength from 75 to 77 lbs manager of pharmacy. his L thumb strength is improved overall and thumb flex & AD are improved but Ext & AB are decreased due to pain. Assessment Summary Assessment Pt L thumb pain has been constant since his recent pop at the L thumb MCP joint. Pt pain most prevalent with thumb AB/AD and resisted extension. Probable instability now at MCP jt of L thumb. Pt may need return to MD for possible imaging and assessment of thumb stability and possible injury to MCP medial ligaments. Pt having pain with thumb AD only , not with thumb ext, flex, or opposition. Physical Therapy Plan Frequency and Duration Frequency of Treatment 2x/Week Plan of Care Start Date 05/01/20 Plan of Care End Date 07/30/20 Next Visit Focus/Plan Next Note Type Treatment Note Next Visit Plan Monitor thumb AB ROM and thumb AD tolerance. ?Cervical/UE neural involvement. Check along wrist extensors for possible median nerve entrapment. Add intrinsic manual resistive strengthening (table top ex) and gladys strengthening of MCP joint to IP joint. Progress L hand ( thumb sweeps, and ext with rubber band), wrist, forearm, elbow strengthening, f/b stretch to Left: thumb flexors, Ghazal stretch, & wrist UD's & extensors ( stretch into RD & flexion). STM to L hand ADD's, end with CP if needed. HEP, I/S for CONTRAST BATHS. Progress mccurdy (lumbricals)/pincer manager of pharmacy, & intrinsics (PAD, DAB) strengthening towards return to prior level.
--- NOTE | 2020-05-27 18:40 | PT.OTN ---
Current Diagnoses Muscle wasting and atrophy, not elsewhere classified, left hand (05/27/20) Strain of intrinsic muscle, fascia and tendon of right thumb at wrist and hand level, initial encounter (05/27/20) Unspecified injury of unspecified wrist, hand and finger(s), initial encounter (05/27/20) Physical Therapy Treatment Note PT-OP-A Visit Information Start: 05/01/20 08:08 Freq: Status: Active Protocol: Document 05/27/20 09:05 LRN (Rec: 05/27/20 09:51 LRN [id number]) Out-Patient Physical Therapy Visit Information Visit Information Visit Type Treatment Note Visit Start Time 09:05 Visit Stop Time 09:51 Total Visit Minutes 46 Visit Number 7 Evaluation Information Evaluation Date 05/01/20 Precautions Precautions None PT-OP-B Current Condition Start: 05/01/20 08:08 Freq: Status: Active Protocol: Document 05/01/20 10:35 LRN (Rec: 05/01/20 12:42 LRN [id number]) Current Condition History of Current Condition Onset Date 3-4 months ago Current Complaints 1/10 pain at L thumb IP jt, tender opposition laterally, dorsal. History of Current Condition Has good strength with opposition movement, but when flexing the IP joint he has no strength. 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 No loss of ROM or dexterity. Plays piano and has noticed if having pain it is at the L thumb IP joint and after long playing has pain at CMC jt into forearm. Prior Treatments and Tests none Future Testing and Treatments Planned MRI & Nerve conduction test. Developmental History Developmental History 2 yrs ago almost cut L thumb due to hitting saw and was told it nicked a tendon ( proximal to jt). He regained full use of thumb. Has sense of funny bone feeling between CMC and MCP jt. Seems to be double jointed (MCP jt pops backward or into positions). 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 L hand was having trouble opening it by end of day. As time progressed, L hand thumb was not being used and had lack of strength. No serious pain just dull ache in MCP jt and IP jt. Treatment Goals Patient/Caregiver Goals Pt goal is to be assessed and determine reason for problem. Inflammation pinching a nerve. Goal is to eliminate lack of strength or problem that is causing lack of strength. Prior Functional Status Baseline Function- ADL's Independent Baseline Function- Mobility Independent Baseline Function- Work/School No difficulty holding onto objects using L thumb. Could unscrew clamps at work. Current Functional Impairments (Reported) Functional Limitations- ADL's Can carry light objects. Washing dishes almost dropped glasses due to slipper and required holding tightly to object. 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 Compensates by not using L thumb and uses R side more. Can't unscrew clamps. Personal Factors Other Personal Factors That May Effect Works as a application support analyst 6 days a Therapy/Recovery week. PT-OP-C Subjective Start: 05/01/20 08:08 Freq: Status: Active Protocol: Document 05/27/20 09:05 LRN (Rec: 05/27/20 17:09 LRN [id number]) OP-PT Subjective Patient Comments Patient Comments Pt present results of his EMG study with many questions regarding recommendations as to what to do next. PT-OP-J Posture/Palpation/Skin Start: 05/01/20 08:08 Freq: Status: Active Protocol: Document 05/01/20 10:35 LRN (Rec: 05/03/20 12:03 LRN [id number]) Palpation Assessment Location L thumb AD Palpation Location L thumb AD muscle and CMC jt. Palpation Findings Tenderness Palpation Details Denies palpable pain in L forearm. PT-OP-K Range of Motion Start: 05/01/20 08:08 Freq: Status: Active Protocol: Document 05/20/20 15:08 LRN (Rec: 05/20/20 16:29 LRN [id number]) Thumb Goniometric Range of Motion Thumb Right Thumb ROM WFL Yes MCP Flexion Active (degrees) 58 IP Flexion Active (degrees) 58 CMC Extension Active (degrees) 52 Opposition to 5th Digit Base (cm) 0 Left Thumb ROM WFL No MCP Flexion Active (degrees) 66 IP Flexion Active (degrees) 56 CMC Flexion Active (degrees) 10 CMC Extension Active (degrees) 56 Opposition to 5th Digit Base (cm) 0 Thumb ROM Limitations Comments Left CMC AB: 54 PT-OP-L Special Tests Start: 05/01/20 08:08 Freq: Status: Active Protocol: Document 05/01/20 10:35 LRN (Rec: 05/01/20 12:42 LRN [id number]) Special Tests Wrist/Hand Special Tests Phalens Test Results - bilaterally Grind Test of Thumb Test Results - bilaterally Ghazal's Test Results + bilaterally Comments Pain on radial side of wrist bilaterally. PT-OP-M Strength Start: 05/01/20 08:08 Freq: Status: Active Protocol: Document 05/27/20 09:05 LRN (Rec: 05/27/20 17:09 LRN [id number]) Finger/Thumb Strength Finger Manual Muscle Testing Right Thumb Flexion (fingers C8) 5 Normal Extension (thumb C8) 5 Normal Adduction 5 Normal Abduction (fingers T1) 5 Normal Left Thumb Flexion (fingers C8) 5 Normal Extension (thumb C8) 4+ Good+ Adduction 4- Good- Abduction (fingers T1) 4- Good- Hand Hand Tube Bender/Pinch Strength Hand Dominance Hand Dominance Right Hand Strength Right Hand Tube Bender (lbs) 68 Comments Hand Tube Bender 3 trials (lbs): 95, 95, 80. Left Hand Tube Bender (lbs) 43 Comments Hand Tube Bender 3 trials (lbs): 75, 65, 65. PT-OP-Q Treatments Start: 05/01/20 08:08 Freq: Status: Active Protocol: Document 05/27/20 09:05 LRN (Rec: 05/27/20 09:51 LRN [id number]) Therapeutic Exercises Sitting Exercises Gripping Sitting Exercise Name See Hand Tube Bender strength testing results Thumb ADD/AB stretching Sitting Exercise Name Stretch to L thumb AD/AB Side left Reps/Minutes 2' Wrist Ext Sitting Exercise Name Wrist ext with thumb gripping Side bilateral Equipment Used 5# Reps/Minutes 10x Comments Burning at L forearm with ex Wrist Flex Sitting Exercise Name Wrist Flex with thumb gripping Side bilateral Equipment Used 5# Reps/Minutes 10x Supination Sitting Exercise Name Supination with thumb gripping Side bilateral Reps/Minutes 10x Pronation Sitting Exercise Name Pronation with thumb gripping Side bilateral Resistance 4# Reps/Minutes 10x Elbow Curls Sitting Exercise Name Elbow curls Side bilateral Resistance 10# Reps/Minutes 10x Self-Care/Home Management Treatment Education Patient Education Home Exercise Program,Joint Protection Other Education Discussed at length pt's EMG study results and implications to his rehabilitation program . Discussed use of elbow splinting as verbally recommended (per pt) by Electromyographer. Answered pt's questions regarding results of EMG study with referral to physician for questions I was not able to answer (physiology of nerves). Activities Self-Care/Home Management Activities Discussed pt's HEP of UE strengthening ex's that he could continue, and reviewed/ discussed L hand rehabilitation strengthening program. Made recommendations that pt avoid maximum and repetitive flexion at the L elbow with work and exercise to promote healing. PT-OP-R Modalities Start: 05/01/20 08:08 Freq: Status: Active Protocol: Document 05/15/20 10:36 LRN (Rec: 05/15/20 17:20 LRN [id number]) Hot Pack/Cold Pack Treatment Cold Pack Location L hand Patient Position Sitting Treatment Duration (minutes) 10 Patient Tolerance Good Comments Cryotherapy during arm strengthening ex's. No c/o pain s/p therapy. PT-OP-T Assessment and Plan Start: 05/01/20 08:08 Freq: Status: Active Protocol: Document 05/27/20 09:05 LRN (Rec: 05/27/20 09:51 LRN [id number]) Physical Therapy Assessment Goals Four Impairment L hand pain onset with work activities. Short Term Goal (STG) Pt will report no L hand pain with piano playing. STG Duration 06/26/20 (05/27/20: NOT MET GOAL) Jail Goal (LTG) Pt will improve activity tolerance to return back to work at his prior level of function. LTG Duration 07/30/20 (05/27/20: NOT MET GOAL) Three Impairment Decreased L hand mobility Short Term Goal (STG) Improve L hand CMC jt mobility to be equal to R hand (CMC jt : extension right is 30 deg's, left is 22 deg's; Thumb: MCP flex 60 L, 50 R). (05/27/20: Thumb: CMC jt (in deg's) flex is 4 L, 16 R, ext 24 L, 14 R; Thumb MCP flex 50 L, 56 R) STG Duration 06/05/20 (05/27/20: NOT MET GOAL ) Two Impairment Decreased L hand strength with atrophy of hand muscles. Short Term Goal (STG) Improve L hand strength to no less than 4/5 with pain no more than 2/5. 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 LTG Duration 06/26/20 (05/27/20: NOT MET GOAL) One Impairment Pt lacks self care program & HEP. Short Term Goal (STG) Pt will be educated in proper use of hot/cold and cold packs for pain management. 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 LTG Duration 07/30/20 (05/27/20: MET GOAL) Progress Towards Goals Progress Comments Today L hand fagot heater shows an overall decrease in L hand fagot heater strength from 75 to 43 lbs fagot heater. Last MMT showed L thumb strength improved overall and thumb flex & AD are improved but Ext & AB are decreased due to pain. Assessment Summary Assessment Goals not met except for placement on a self care HEP of ROM & strengthening exercises. The pt has been able to show some improvement in L thumb strength, but overall fagot heater strength is less. This may be related to the new EMG findings, but also the pt reported on 05/15/20 that he was moving his L thumb when he felt a pop in the thumb with immediate pain in the area between his L thumb MCP and CMC joint. He now demonstrates decreased L thumb mobility at the CMC and MCP joint. I would recommend further testing is needed to determine the scope of his injury and that he receive referrals as indicated below. (05/20/20: Thumb: CMC jt (in deg's) flex 10 L; ext is 56 L, 52 R; MCP flex 66 L, 58 R; IP flex 56 L, 58 R) (05/27/20: Thumb: CMC jt (in deg's) flex is 4 L, 16 R, ext 24 L, 14 R; MCP flex 50 L, 56 R). Physical Therapy Plan Other Referrals/Consults Referrals/Consults Recommended Recommend an orthopedic hand specialist consult for his L thumb. Recommend a consult to a occupational therapist for custom made elbow splint for nighttime positioning to prevent excessive L elbow flexion. Discharge Physical Therapy Discharge Comments Pt has been placed on an independent HEP of hand, and wrist ROM and strengthening exercises that he will continue with a goal of improving his L hand strength. He has strengthening exercises for his L elbow that he will modify to decrease the stress on the ulnar nerve by avoiding, full flexion and repetitive flex with home exercises and if possible, at work. The pt will still benefit from an MRI of the L thumb to identify the stability at the left hand MCP and possibly CMC joint, as well as further assessment from an orthopedic hand specialist physician for further options of care. He also could benefit from a nighttime elbow splint to prevent excessive flexion at the elbow. The pt is being referred back to his referring physician for follow up care. Thank you for your referral.
== END 2020-05-29 11:57 ==
LOC: PHYS 09:00
PROVIDERS: PCP Family Medicine; Referring Provider Family Medicine; Visit Provider Family Medicine
DX: S69.90XA Unspecified injury of unspecified wrist, hand and finger(s), initial encounter (principal); M62.542 Muscle wasting and atrophy, not elsewhere classified, left hand; S66.411A Strain of intrinsic muscle, fascia and tendon of right thumb at wrist and hand level, initial encounter
CPT/HCPCS: 97110; 97140; 97162; 97535

== ENCOUNTER → 2020-06-13 06:42 | Outpatient (CLI) | payer OTHER, SELFPAY ==
--- NOTE | 2020-06-13 | DI.MRI.S_ITS ---
PROCEDURE: MR HAND LT WO CON INDICATIONS: Unspecified injury of left wrist, hand and finger TECHNIQUE: Noncontrast oblique coronal T1 spin echo and T2 fast spin echo with fat saturation, axial and sagittal T2 fast spin echo with fat saturation, through the thumb. COMPARISON: [facility], CR, XR HAND LT MIN 3V, 01/30/2018, 21:28. FINDINGS: Image quality: Excellent. Bones: The bones are normally aligned, without marrow contusions or fractures. No intra-osseous lesions. Mild osseous spurring is seen at the margins of the 1st carpometacarpal joint. Soft tissues: There is mild heterogeneity of the ulnar collateral ligament at the 1st metacarpophalangeal joint without discontinuity of fibers, compatible with a chronic low-grade sprain. No Stenner lesion is seen. The aponeurosis of the adductor pollicis muscle is intact. The radial collateral ligament is intact. The volar plate is intact. Mild skin irregularity is seen at the dorsal radial aspect of the thumb at the level of the distal metacarpal in the region of the previously seen laceration, compatible with scarring. The adjacent extensor pollicis brevis tendon is intact. The thenar musculature is intact. The included flexor and extensor tendons of the hand and wrist are intact. Miscellaneous: No ganglion cysts. IMPRESSION: Chronic low-grade sprain of the ulnar collateral ligament at the 1st metacarpophalangeal joint without discontinuity of the ligament fibers. Dictated by: Leo Gutierrez M.D. on 06/13/2020 at 8:30 Approved by: Leo Gutierrez M.D. on 06/13/2020 at 8:40
== END ==
PROVIDERS: PCP Nurse Practitioner Family; Referring Provider Nurse Practitioner Family; Visit Provider Nurse Practitioner Family
DX: S63.642A Sprain of metacarpophalangeal joint of left thumb, initial encounter (principal); X58.XXXA Exposure to other specified factors, initial encounter
CPT/HCPCS: 73218

== ENCOUNTER 2020-08-25 07:30 | Outpatient (RCR) | payer OTHER, SELFPAY ==
--- NOTE | 2020-06-20 15:35 | OT.OP.EVAL ---
Visit Care Team Role Provider Type NAEEM Koo Attending Provider Non-Staff Primary Care Provider Referring Provider Specialty: Family Practice Address: [facility] [address] , [place], [address] Email: Occupational Therapy Initial Evaluation OT Outpatient Adult Evaluation Start: 06/27/20 16:53 Freq: Status: Active Protocol: Document 06/20/20 15:30 AMS (Rec: 06/27/20 17:26 AMS [id number]) General Information Plan of Care Dates 06/20/20-09/12/20 Insurance Information Treatment Setting Outpatient Care Note Type Initial Evaluation Goals Treatment HEP/Education. Therapist discussed ROM exercises w/ inclusion of slight isometric/ resistance. Therapist also discussed possible need for thumb spica splint given slight sprain of UCL. Assisted Goals 1. Patient will be modified independent with execution of home exercise program utilizing provided written and visual instructions from therapist. 2. Patient will present with decreased pain/discomfort of the left hand which will support active incorporation of the L hand in day-to-day life; this will be indicated by score of 2 or less out of 10 on the Pain Assessment Grid . Assessment/Plan Treatment Assessment Morales is a 34 y.o. right hand dominant male referred to outpatient OT by his PCP, Dolores Hawk MD, secondary to unspecified injury to the left wrist. Diagnostic information available to therapist: Hand MRI 06/13/20 Findings: Chronic low-grade sprain of the ulnar collateral ligament at the 1st metacarpophalangeal joint without discontinuity of the ligament fibers. Morales reported having EMG; results not available to therapist and therapist will need to pursue results of the test/findings. 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 Morales was referred to UE pediatric clinical nurse specialist and has follow-up appt to go over findings on July 02. He reported injury to the dorsum of L thumb which he did not previously receive treatment ( he was d/c by PT based on reported lack of need for continued services); he did previously receive PT treatment for presenting condition. Morales denied h/o use of splint. Morales indicated 4/ 10 on the Pain Assessment Grid . 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 Poor stability of MPJ noted w/ slight resistance applied distally to thumb. Tightness w/ tenderness to palpation of thumb add; tendency towards flexion of IP joint of L thumb w/ lateral pinch. Minor hyperextension of MPJ noted. Weakness w/ thumb add and radial thumb add. Weakness w/ thumb flex. 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 Education provided for CMC ROM versus obtaining ROM for grasping at the MPJ given laxity. Outpatient OT is recommended to address areas of concern and to support Morales's ability to engage in meaningful activities with active incorporation of non-dominant left hand. Based on referring diagnosis therapist may need to ask for inclusion of elbow if compression of the ulnar nerve was found to be at elbow level given that current referral is for unspecified injury of the left wrist. In addition, given that Morales is being followed by UE orthopedic surgeon, therapist will likely have to adjust treatment plan. Comment 10 weeks Treatment Frequency Once a Week Therapeutic Contents Active Range of Motion, Adaptive Equipment Education, Client Education,Cognitive Skills Development,Functional Activities,Home Exercise Program,Joint Protection, Manual Therapy,Education, Neurodevelopment Treatment, Neuromuscular Re-Education, Self-Care,Stretching/ Flexibility Activities, Therapeutic Activities, Therapeutic Exercises, Modalities Types of Modalities Contrast Bath,E-Stim, Functional Stimulation (FES), Ice Massage,T.E.N. Stimulation ,TENS Placement/Application, Ultrasound Additional Types of Modalities Heat Patient Instruction Home Exercise Program,Plan of Care,Questions/Concerns
--- NOTE | 2020-06-27 18:00 | OT.OP.TRT ---
Visit Care Team Role Provider Type NAEEM Koo Attending Provider Non-Staff Primary Care Provider Referring Provider Specialty: [facility] Practice Address: [facility] [address] , [place], [address] Email: Occupational Therapy Treatment Note OT Outpatient Treatment Note - Adult Start: 06/27/20 16:53 Freq: Status: Active Protocol: Document 06/27/20 17:48 AMS (Rec: 06/27/20 18:00 AMS [id number]) OT Outpatient Adult Treatment Note Session Time Visit Start Time 07:30 Visit Stop Time 08:15 Total Visit Minutes 45 Visit Information Plan of Care Dates 06/20/20-09/12/20 Insurance Information [facility] Setting Treatment Setting Outpatient Care Visit Type Note Type Treatment Note General Information General Information Morales is a 34 y.o. right hand dominant male referred to outpatient OT by his PCP, Dolores Hawk MD, secondary to unspecified injury to the left wrist. Diagnostic information available to therapist: Hand MRI 06/13/20 Findings: Chronic low-grade sprain of the ulnar collateral ligament at the 1st metacarpophalangeal joint without discontinuity of the ligament fibers. Morales reported having EMG; results not available to therapist and therapist will need to pursue results of the test/findings. 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 Morales was referred to UE performance specialist and has follow-up appt to go over findings on July 02. He reported injury to the dorsum of L thumb which he did not previously receive treatment ( he was d/c by PT based on reported lack of need for continued services); he did previously receive PT treatment for presenting condition. Morales denied h/o use of splint. Morales indicated 4/ 10 on the Pain Assessment Grid . 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 Poor stability of MPJ noted w/ slight resistance applied distally to thumb. Tightness w/ tenderness to palpation of thumb add; tendency towards flexion of IP joint of L thumb w/ lateral pinch. Minor hyperextension of MPJ noted. Weakness w/ thumb add and radial thumb add. Weakness w/ thumb flex. 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 Education provided for CMC ROM versus obtaining ROM for grasping at the MPJ given laxity. - Subjective Identification Type Name Identification Reconciled With Medical Record Observations I have an appointment on the per Morales. Patient/Caregiver Compliance with Home Excellent Exercise Program - Objective Objective Measurements Please refer to below for progress towards meeting established goals. Senior Care Goals 1. Patient will be modified independent with execution of home exercise program utilizing provided written and visual instructions from therapist. 2. Patient will present with decreased pain/discomfort of the left hand which will support active incorporation of the L hand in day-to-day life; this will be indicated by score of 2 or less out of 10 on the Pain Assessment Grid . - Treatment 2 Descriptor Manual therapy. Release to thumb add. 1 Descriptor Ultrasound. 20% duty cycle. 2. 2 w/cm2. Address tightness of thumb add. Exercises 1 Descriptor HEP/POC. Initiated rubberband strengthening exercises of the thumb. Thumb flex. Thumb add. Thumb radial abd. Thumb radial add. Thumb ROM at CMC. Patient denied questions. - Assessment Assessment of Improvement Advanced HEP on this treatment date. Follow-up w/ UE ortho surgeon Tuesday. Recommend adjusting POC/treatments based on feedback from physician follow-up. Recommend considering referral to hand therapist for custom thumb spica splint as conservative approach to address thumb collateral ligament laxity given patient's profession. Recommend following-up w/ patient re: paperwork for additional diagnostic testing (nerve conduction study) and adjusting HEP/POC appropriately. - Plan Therapy Recommendations Continue with Current Program, Advance per Rehabilitation Protocol
--- NOTE | 2020-07-04 16:54 | OT.OP.TRT ---
Visit Care Team Role Provider Type NAEEM Koo Attending Provider Non-Staff Primary Care Provider Referring Provider Specialty: [facility] Practice Address: [facility] [address] , [place], [address] Email: Occupational Therapy Treatment Note OT Outpatient Treatment Note - Adult Start: 06/27/20 16:53 Freq: Status: Active Protocol: Document 07/04/20 16:43 AMS (Rec: 07/04/20 16:54 AMS [id number]) OT Outpatient Adult Treatment Note Session Time Visit Start Time 09:30 Visit Stop Time 10:20 Total Visit Minutes 50 Visit Information Plan of Care Dates 06/20/20-09/12/20 Insurance Information [facility] Setting Treatment Setting Outpatient Care Visit Type Note Type Treatment Note General Information General Information Morales is a 34 y.o. right hand dominant male referred to outpatient OT by his PCP, Dolores Hawk MD, secondary to unspecified injury to the left wrist. Diagnostic information available to therapist: Hand MRI 06/13/20 Findings: Chronic low-grade sprain of the ulnar collateral ligament at the 1st metacarpophalangeal joint without discontinuity of the ligament fibers. Morales reported having EMG; results not available to therapist and therapist will need to pursue results of the test/findings. 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 Morales was referred to UE discharge specialist and has follow-up appt to go over findings on July 02. He reported injury to the dorsum of L thumb which he did not previously receive treatment ( he was d/c by PT based on reported lack of need for continued services); he did previously receive PT treatment for presenting condition. Morales denied h/o use of splint. Morales indicated 4/ 10 on the Pain Assessment Grid . 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 Poor stability of MPJ noted w/ slight resistance applied distally to thumb. Tightness w/ tenderness to palpation of thumb add; tendency towards flexion of IP joint of L thumb w/ lateral pinch. Minor hyperextension of MPJ noted. Weakness w/ thumb add and radial thumb add. Weakness w/ thumb flex. 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 Education provided for CMC ROM versus obtaining ROM for grasping at the MPJ given laxity. - Subjective Identification Type Name Identification Reconciled With Medical Record Observations He recommended a sleeve that athlete's wear per Morales relative to Dr. Meeks. Patient/Caregiver Compliance with Home Excellent Exercise Program - Objective Objective Measurements Please refer to below for progress towards meeting established goals. E Commerce Marketing Manager Goals 1. Patient will be modified independent with execution of home exercise program utilizing provided written and visual instructions from therapist. 2. Patient will present with decreased pain/discomfort of the left hand which will support active incorporation of the L hand in day-to-day life; this will be indicated by score of 2 or less out of 10 on the Pain Assessment Grid . - Treatment 2 Descriptor Manual therapy. Medial elbow. 1 Descriptor Ultrasound. 20% duty cycle. 2. 2 w/cm2. Medial elbow. Address inflammation. Exercises 1 Descriptor HEP/POC. Recommended the following ROM/stretches: forearm supination w/ wrist extension; forearm pronation w / wrist flexion; forearm supination w/ wrist extension/ RD. Recommended use of elbow sleeve as recommended by physician; recommended contacting of Dr. Meeks's nurse to determine if there is a specific sleeve or pursue internet options. Ulnar nerve gliding discussed. Recommended strengthening of 5th digit into abd utilizing rubberband; discussed rubberband placement and impact on amount of resistance (prox versus distal). Recommended use of ice cup for inflammation; informed on use 5-7 minutes as tolerated. Patient denied questions. - Assessment Assessment of Improvement Advanced HEP on this treatment date. Adjusted HEP based on feedback provided by patient from the appointment w/ the surgeon. Tenderness to palpation and reproduction of ulnar nerve entrapment symptoms w/ Tinel's. Recommended following all of surgeon's recommendations, including activity modification strategies. - Plan Therapy Recommendations Continue with Current Program, Advance per Rehabilitation Protocol
--- NOTE | 2020-07-21 15:30 | OT.OP.TRT ---
Visit Care Team Role Provider Type NAEEM Koo Attending Provider Non-Staff Primary Care Provider Referring Provider Specialty: [facility] Practice Address: [address] , [place], [address] Email: Occupational Therapy Treatment Note OT Outpatient Treatment Note - Adult Start: 06/27/20 16:53 Freq: Status: Active Protocol: Document 07/21/20 15:30 AMS (Rec: 07/23/20 11:52 AMS [id number]) OT Outpatient Adult Treatment Note Session Time Visit Start Time 08:30 Visit Stop Time 09:18 Visit Information Plan of Care Dates 06/20/20-09/12/20 Insurance Information [employer] Setting Treatment Setting Outpatient Care Visit Type Note Type Treatment Note General Information General Information Morales is a 34 y.o. right hand dominant male referred to outpatient OT by his PCP, Dolores Hawk MD, secondary to unspecified injury to the left wrist. Diagnostic information available to therapist: Hand MRI 06/13/20 Findings: Chronic low-grade sprain of the ulnar collateral ligament at the 1st metacarpophalangeal joint without discontinuity of the ligament fibers. Morales reported having EMG; results not available to therapist and therapist will need to pursue results of the test/findings. 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 Morales was referred to E wildlife removal specialist and has follow-up appt to go over findings on July 02. He reported injury to the dorsum of L thumb which he did not previously receive treatment ( he was d/c by PT based on reported lack of need for continued services); he did previously receive PT treatment for presenting condition. Morales denied h/o use of splint. Morales indicated 4/ 10 on the Pain Assessment Grid . 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 Poor stability of MPJ noted w/ slight resistance applied distally to thumb. Tightness w/ tenderness to palpation of thumb add; tendency towards flexion of IP joint of L thumb w/ lateral pinch. Minor hyperextension of MPJ noted. Weakness w/ thumb add and radial thumb add. Weakness w/ thumb flex. 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 Education provided for CMC ROM versus obtaining ROM for grasping at the MPJ given laxity. - Subjective Identification Type Name Identification Reconciled With Medical Record Observations I am still waiting to hear back per Morales townsend: recommendation for DME elbow piece. Patient/Caregiver Compliance with Home Excellent Exercise Program - Objective Objective Measurements Please refer to below for progress towards meeting established goals. Wrist MMT: R wrist flex 5/5; R wrist ext 5/5; R wrist RD 5/5; R wrist UD 5/5 L wrist flex 4+/5; L wrist ext 4/5; L wrist RD 4+/5; L wrist UD 4/5 Short Term Goals 1. L wrist flex 5/5 MMT; L wrist ext 5/5 MMT[address] 2[address] L wrist [address] 5/5 MMT; L wrist UD 5/5 MMT. Assisted Goals 1. Patient will be modified independent with execution of home exercise program utilizing provided written and visual instructions from therapist. 07/21/20= GOAL UPGRADED 2. Patient will present with decreased pain/discomfort of the left hand which will support active incorporation of the L hand in day-to-day life; this will be indicated by score of 2 or less out of 10 on the Pain Assessment Grid . 3. Patient will present with increased ability to engage in meaningful tasks with active engagement of the L hand ( relative to vocational tasks); this will be based on self, report. Patient will report no restrictions relative to use of the L hand while completing vocational tasks (e.g., wood work/stabilizing plank). - Treatment 3 Descriptor Manual treatment. Facilitation of wrist ROM. PROM. 2 Descriptor Manual therapy. Medial elbow. 1 Descriptor Ultrasound. 20% duty cycle. 2. 2 w/cm2. Medial elbow. Address inflammation. Exercises 1 Descriptor HEP/POC. Contacted Dr. Meeks's office and left message; a nurse for Dr. Meeks conveyed that the doctor recommends a cheap version of sleeve such as the Heelbo elbow splint and that he does not recommend a more rigid version. Introduced wrist strengthening exercises based on presentation. Recommended 3 sets of 10 to 15 reps with the following exercises = wrist extension, wrist flexion, wrist RD and wrist UD. Porvided w/ TB #3 and TB #4 for home carry-over. Also discussed upgrading to TB#1 segments or strenghtening of digits of the hand - addressing ulnar sided and thumb weakness. Provided TB #1 for home carry-over. Discussed method for self- mobilization of the wrist. Patient denied questions. - Assessment Assessment of Improvement L wrist weakness identified; tightness/decreased mobility of carpals. Incorporated new goals and advanced HEP to address wrist weakness and recommended self-mobilization technique for wrist. Patient self-reported tenderness proximal to elbow along ulnar nerve pathway. Patient continues to express concerns relative to L thumb; recommended returning back to Dr. Meeks and asking for further examination/assessment . Positive response to joint mobs. Morales is compliant with his home exercise program; therapist has been advancing exercises. However, it is important to note that Morales continues to have difficulty engaging in meaningful activities (e.g., opening up of a jar). Recommend exploring thumb even further at time of next treatment session. - Plan Therapy Recommendations Continue with Current Program, Advance per Rehabilitation Protocol
--- NOTE | 2020-07-28 09:57 | OT.OP.TRT ---
Visit Care Team Role Provider Type NAEEM Koo Attending Provider Non-Staff Primary Care Provider Referring Provider Specialty: [facility] Practice Address: [facility] Maisha [address] , [place], [address] Email: Occupational Therapy Treatment Note OT Outpatient Treatment Note - Adult Start: 06/27/20 16:53 Freq: Status: Active Protocol: Document 07/28/20 09:37 AMS (Rec: 07/28/20 09:55 AMS [id number]) OT Outpatient Adult Treatment Note Session Time Visit Start Time 07:30 Visit Stop Time 08:18 Total Visit Minutes 48 Visit Information Plan of Care Dates 06/20/20-09/12/20 Insurance Information [facility] Setting Treatment Setting Outpatient Care Visit Type Note Type Treatment Note General Information General Information Morales is a 34 y.o. right hand dominant male referred to outpatient OT by his PCP, Dolores Hawk MD, secondary to unspecified injury to the left wrist. Diagnostic information available to therapist: Hand MRI 06/13/20 Findings: Chronic low-grade sprain of the ulnar collateral ligament at the 1st metacarpophalangeal joint without discontinuity of the ligament fibers. Morales reported having EMG; results not available to therapist and therapist will need to pursue results of the test/findings. 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 Morales was referred to UE mechanical specialist and has follow-up appt to go over findings on July 02. He reported injury to the dorsum of L thumb which he did not previously receive treatment ( he was d/c by PT based on reported lack of need for continued services); he did previously receive PT treatment for presenting condition. Morales denied h/o use of splint. Morales indicated 4/ 10 on the Pain Assessment Grid . 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 Poor stability of MPJ noted w/ slight resistance applied distally to thumb. Tightness w/ tenderness to palpation of thumb add; tendency towards flexion of IP joint of L thumb w/ lateral pinch. Minor hyperextension of MPJ noted. Weakness w/ thumb add and radial thumb add. Weakness w/ thumb flex. 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 Education provided for CMC ROM versus obtaining ROM for grasping at the MPJ given laxity. - Subjective Identification Type Name Identification Reconciled With Medical Record Observations I see the doctor in a few weeks. My doctor would like for my nutrition aides teacher strength to be tested before then per Morales. Patient/Caregiver Compliance with Home Excellent Exercise Program - Objective Objective Measurements Please refer to below for progress towards meeting established goals. Wrist MMT: R wrist flex 5/5; R wrist ext 5/5; R wrist RD 5/5; R wrist UD 5/5 L wrist flex 4+/5; L wrist ext 4/5; L wrist RD 4+/5; L wrist UD 4/5 Short Term Goals 1. L wrist flex 5/5 MMT; L wrist ext 5/5 MMT. 2. L wrist RD 5/5 MMT; L wrist UD 5/5 MMT. Full Time Staff Interpreter Goals 1. Patient will be modified independent with execution of home exercise program utilizing provided written and visual instructions from therapist. 07/28/20= 50% met 2. Patient will present with decreased pain/discomfort of the left hand which will support active incorporation of the L hand in day-to-day life; this will be indicated by score of 2 or less out of 10 on the Pain Assessment Grid . 3. Patient will present with increased ability to engage in meaningful tasks with active engagement of the L hand ( relative to vocational tasks); this will be based on self, report. Patient will report no restrictions relative to use of the L hand while completing vocational tasks (e.g., wood work/stabilizing plank). - Treatment 3 Descriptor Manual treatment. Facilitation of wrist ROM. 2 Descriptor Manual therapy. Medial elbow. 1 Descriptor Ultrasound. 20% duty cycle. 2. 3 w/cm2. Medial elbow. x 8 minutes. Addressed inflammation. Exercises 1 Descriptor HEP/POC. Patient has ordered a Heelo compression sleeve from [employer]; he is waiting for it to be delivered to his home. Patient's doctor would like for his nutrition aides teacher strength to be tested prior to follow-up treatment session w/ Dr. Meeks. Reviewed home exercise program; provided medium soft red theraputty for a slight upgrade from yellow theraputty . Patient has good awareness and insight into situations that have exacerbated symptoms . Patient denied questions. - Assessment Assessment of Improvement Patient reports that he is more aware of his symptoms since time of initial evaluation; he denied reduction of symptoms. Given that 3 weeks usually reduces symptoms w/ utilization of conservative measurement strategies this will need to be monitored. Recommend re- evaluating nutrition aides teacher strength at time of next treatment session . Provided medium soft red theraputty for home utilization. - Plan Therapy Recommendations Continue with Current Program, Advance per Rehabilitation Protocol
--- NOTE | 2020-08-11 09:51 | OT.OP.TRT ---
Visit Care Team Role Provider Type NAEEM Koo Attending Provider Non-Staff Primary Care Provider Referring Provider Specialty: [facility] Practice Address: [facility] Maisha BRYAN , [place], [address] Email: Occupational Therapy Treatment Note OT Outpatient Treatment Note - Adult Start: 06/27/20 16:53 Freq: Status: Active Protocol: Document 08/11/20 07:32 AMS (Rec: 08/11/20 09:50 AMS [id number]) OT Outpatient Adult Treatment Note Session Time Visit Start Time 07:37 Visit Stop Time 08:17 Total Visit Minutes 40 Visit Information Plan of Care Dates 06/20/20-09/12/20 Insurance Information [facility] Setting Treatment Setting Outpatient Care Visit Type Note Type Treatment Note General Information General Information Morales is a 34 y.o. right hand dominant male referred to outpatient OT by his PCP, Dolores Hawk MD, secondary to unspecified injury to the left wrist. Diagnostic information available to therapist: Hand MRI 06/13/20 Findings: Chronic low-grade sprain of the ulnar collateral ligament at the 1st metacarpophalangeal joint without discontinuity of the ligament fibers. Morales reported having EMG; results not available to therapist and therapist will need to pursue results of the test/findings. 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 Morales was referred to UE senior communications specialist and has follow-up appt to go over findings on July 02. He reported injury to the dorsum of L thumb which he did not previously receive treatment ( he was d/c by PT based on reported lack of need for continued services); he did previously receive PT treatment for presenting condition. Morales denied h/o use of splint. Morales indicated 4/ 10 on the Pain Assessment Grid . 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 Poor stability of MPJ noted w/ slight resistance applied distally to thumb. Tightness w/ tenderness to palpation of thumb add; tendency towards flexion of IP joint of L thumb w/ lateral pinch. Minor hyperextension of MPJ noted. Weakness w/ thumb add and radial thumb add. Weakness w/ thumb flex. 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 Education provided for CMC ROM versus obtaining ROM for grasping at the MPJ given laxity. - Subjective Identification Type Name Identification Reconciled With Medical Record Observations [facility] [employer] they said that it would be about a week before they could get back to me per Morales . Patient/Caregiver Compliance with Home Excellent Exercise Program - Objective Objective Measurements Please refer to below for progress towards meeting established goals. 08/04/20: Dynamometer avg 85.0 # of force L utilization coordinator; avg 90.0# of force R utilization coordinator. Pinchometer: avg 14.7# of force L lateral miller pinch; avg 16.3# of force R lateral miller pinch. Avg 10.3# of force 10.3# of force L tip pinch; avg 11.7# of force R tip pinch. Avg 13.3# of force L 3-jaw grasp; avg 14.5# of force R 3-jaw grasp. Norms when compared to same- aged 35 to 39 y.o. male peers: 112.9 +/- 27.7# of force (L utilization coordinator slightly > 1 SD below the mean compared to initial avg of 77.7# of force); 119.7 +/- 24.0# of force (R utilization coordinator within 1 SD below the mean); 25.6 +/- 3.9# of force (L lateral miller pinch > 2 SD below the mean); 26.1 +/- 3.2# of force (R lateral miller pinch > 3 SD below the mean); 17.7 +/- 3.8# of force (L tip pinch > 1 SD below the mean); 18.0 +/- 3.6# of force (R tip pinch > 1 SD below the mean); 25.9 +/- 5.4# of force (L 3-jaw pinch > 2 SD below the mean); 26.2 +/- 4 .1# of force (R 3-jaw pinch > 2 SD below the mean). 07/21/20: Wrist MMT: R wrist flex 5/5; R wrist ext 5/5; R wrist RD 5/5; R wrist UD 5/5; L wrist flex 4+/5; L wrist ext 4/5; L wrist RD 4+/5; L wrist UD 4/5 Short Term Goals 1. L wrist flex 5/5 MMT; L wrist ext 5/5 MMT. 2. L wrist RD 5/5 MMT; L wrist UD 5/5 MMT. Bankruptcy Paralegal Goals 1. Patient will be modified independent with execution of home exercise program utilizing provided written and visual instructions from therapist. 08/04/20= 50% met 2. Patient will present with decreased pain/discomfort of the left hand which will support active incorporation of the L hand in day-to-day life; this will be indicated by score of 2 or less out of 10 on the Pain Assessment Grid . 3. Patient will present with increased ability to engage in meaningful tasks with active engagement of the L hand ( relative to vocational tasks); this will be based on self, report. Patient will report no restrictions relative to use of the L hand while completing vocational tasks (e.g., wood work/stabilizing plank). - Treatment 2 Descriptor Manual therapy. Dorsal/medial aspect to address inflammation based on feedback. 1 Descriptor Ultrasound. 20% duty cycle. 2. 3 w/cm2. Medial elbow. x 8 minutes. Treatment to address inflammation/tightness. Exercises 4 Descriptor ROM. Distal UE stretches. 3 Descriptor UEB. Seated. x 10 minutes. 2 Descriptor Weighted spherical ball. Wrist extension w/ elbow ext. 3.3# spherical weighted ball. 2x10. Wrist flexion w/ elbow ext. 3.3# spherical weighted ball. 2x10. Wrist RD w/ elbow ext. 3.3# spherical weighted ball. 2x10. Wrist UD w/ elbow ext. 3.3# spherical weighted ball at side. 2x10. Toss and catch w/ forearm pronation/wrist ext. 3.3# spherical weighted ball. 2x10. Toss and catch w/ forearm supination. 3.3# spherical weighted ball. 2x10. Toss & catch forearm supination <-> pronation. 3.3# spherical weighted ball. 2x10. 1 Descriptor HEP/POC. Patient has a follow- up appointment on 08/25/20. - Assessment Assessment of Improvement Advanced therapeutic exercises within treatment session ( weighted spherical ball/UEB) Patient is actively modifying work tasks/work modification tasks. Exacerbation of symptoms were reported and noted when dorsum elbow struck . Recommend continuing to work on strengthening of the hand and incorporating larger/ weighted objects as tolerated. Recommend re-assessing wrist strength at time of next treatment session. - Plan Therapy Recommendations Continue with Current Program, Advance per Rehabilitation Protocol
--- NOTE | 2020-08-25 09:31 | OT.OP.TRT ---
Visit Care Team Role Provider Type NAEEM Koo Attending Provider Non-Staff Primary Care Provider Referring Provider Specialty: [facility] Practice Address: [facility] [address] , [place], [address] Email: Occupational Therapy Treatment Note OT Outpatient Treatment Note - Adult Start: 06/27/20 16:53 Freq: Status: Active Protocol: Document 08/25/20 09:17 AMS (Rec: 08/25/20 09:31 AMS [id number]) OT Outpatient Adult Treatment Note Session Time Visit Start Time 07:37 Visit Stop Time 08:17 Total Visit Minutes 40 Visit Information Plan of Care Dates 06/20/20-09/12/20 Insurance Information [facility] Setting Treatment Setting Outpatient Care Visit Type Note Type Treatment Note General Information General Information Morales is a 34 y.o. right hand dominant male referred to outpatient OT by his PCP, Dolores Hawk MD, secondary to unspecified injury to the left wrist. Diagnostic information available to therapist: Hand MRI 06/13/20 Findings: Chronic low-grade sprain of the ulnar collateral ligament at the 1st metacarpophalangeal joint without discontinuity of the ligament fibers. Morales reported having EMG; results not available to therapist and therapist will need to pursue results of the test/findings. 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 Morales was referred to UE marketing services specialist and has follow-up appt to go over findings on July 02. He reported injury to the dorsum of L thumb which he did not previously receive treatment ( he was d/c by PT based on reported lack of need for continued services); he did previously receive PT treatment for presenting condition. Morales denied h/o use of splint. Morales indicated 4/ 10 on the Pain Assessment Grid . 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 Poor stability of MPJ noted w/ slight resistance applied distally to thumb. Tightness w/ tenderness to palpation of thumb add; tendency towards flexion of IP joint of L thumb w/ lateral pinch. Minor hyperextension of MPJ noted. Weakness w/ thumb add and radial thumb add. Weakness w/ thumb flex. 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 Education provided for CMC ROM versus obtaining ROM for grasping at the MPJ given laxity. - Subjective Identification Type Name Identification Reconciled With Medical Record Observations I saw Dr. Meeks on Tuesday. He recommended that I avoided certain repetitive movements of the wrist. For example, with bicep curls (flexion of the wrist) per Morales. Patient/Caregiver Compliance with Home Excellent Exercise Program - Objective Objective Measurements Please refer to below for progress towards meeting established goals. 08/04/20: Dynamometer avg 85.0 # of force L palletizer; avg 90.0# of force R palletizer. Pinchometer: avg 14.7# of force L lateral miller pinch; avg 16.3# of force R lateral miller pinch. Avg 10.3# of force 10.3# of force L tip pinch; avg 11.7# of force R tip pinch. Avg 13.3# of force L 3-jaw grasp; avg 14.5# of force R 3-jaw grasp. Norms when compared to same- aged 35 to 39 y.o. male peers: 112.9 +/- 27.7# of force (L palletizer slightly > 1 SD below the mean compared to initial avg of 77.7# of force); 119.7 +/- 24.0# of force (R palletizer within 1 SD below the mean); 25.6 +/- 3.9# of force (L lateral miller pinch > 2 SD below the mean); 26.1 +/- 3.2# of force (R lateral miller pinch > 3 SD below the mean); 17.7 +/- 3.8# of force (L tip pinch > 1 SD below the mean); 18.0 +/- 3.6# of force (R tip pinch > 1 SD below the mean); 25.9 +/- 5.4# of force (L 3-jaw pinch > 2 SD below the mean); 26.2 +/- 4 .1# of force (R 3-jaw pinch > 2 SD below the mean). 07/21/20: Wrist MMT: R wrist flex 5/5; R wrist ext 5/5; R wrist RD 5/5; R wrist UD 5/5; L wrist flex 4+/5; L wrist ext 4/5; L wrist RD 4+/5; L wrist UD 4/5 Short Term Goals GOALS MET L wrist flex 5/5 MMT; L wrist ext 5/5 MMT. *MET 08/25/[address] 5/5 MMT; L wrist UD 5/5 MMT. *MET 08/25/20 Intermediate Goals 1. Patient will be modified independent with execution of home exercise program utilizing provided written and visual instructions from therapist. 08/25/20= 50% met 2. Patient will present with increased ability to engage in meaningful tasks with active engagement of the L hand ( relative to vocational tasks); this will be based on self, report. Patient will report no restrictions relative to use of the L hand while completing vocational tasks (e.g., wood work/stabilizing plank). 08/25 = 75% met GOALS MET Decreased pain/discomfort; obtained a score of 2 or less out of 10 on the Pain Assessment Grid. *MET 08/25/20 - Treatment 2 Descriptor Manual therapy. Dorsal/medial aspect to address inflammation based on feedback. 1 Descriptor Ultrasound. 20% duty cycle. 2. 3 w/cm2. Medial elbow. x 8 minutes. Treatment to address inflammation/tightness. Exercises 5 Descriptor Dynamic grasp patterns. Resistant clothespins. 4 Descriptor ROM. Distal UE stretches. 3 Descriptor UEB. Seated. x 7 minutes. 2 Descriptor Weighted spherical ball. Angled trampoline. 3.3# contralateral coordination. Frontal plane. 3x10. Angled trampoline 3.3# L UE coordination. Left body of space. Overhand catch and throw. 3x10. Overhand throw and underhand catch. 3x10. 1 Descriptor HEP/POC. Patient reported - Assessment Assessment of Improvement Patient had follow-up appointment w/ Dr. Meeks; obtained instructions to avoid future exacerbation of symptoms relative to positioning of wrist. Patient reported that body has adjusted to wearing splints at night that discourage extreme elbow flexion d/t cubital tunnel compression. Patient presented w/ reduction of pain symptoms compared to initial evaluation; met goal in this area. However, does complain of 2/10 pain relative to thumb w/ heavy use. Patient presented w/ increased wrist strength; met short term goals in this area. Patient has follow-up w/ Dr. Yuen's on this date; based on assessment /PCP recommendations, will continue versus d/c to HEP. Education was provided on monitoring positioning of thumb with object manipulation . - Plan Additional Therapy Recommendations Follow-up s/p Dr. Yuen's appointment
--- NOTE | 2020-10-01 11:16 | OT.OP.DC ---
Visit Care Team Role Provider Type NAEEM Koo Attending Provider Non-Staff Primary Care Provider Referring Provider Address: [facility] [address], [place], [address] Email: OT Outpatient OT Outpatient Adult Evaluation Start: 06/27/20 16:53 Freq: Status: Active Protocol: Document 06/20/20 15:30 AMS (Rec: 06/27/20 17:26 AMS [id number]) General Information Visit Information Plan of Care Dates 06/20/20-09/12/20 Insurance Information Setting Treatment Setting Outpatient Care Visit Type Note Type Initial Evaluation Goals Treatment Treatment HEP/Education. Therapist discussed ROM exercises w/ inclusion of slight isometric/ resistance. Therapist also discussed possible need for thumb spica splint given slight sprain of UCL. Usp Goals Usp Goals 1. Patient will be modified independent with execution of home exercise program utilizing provided written and visual instructions from therapist. 2. Patient will present with decreased pain/discomfort of the left hand which will support active incorporation of the L hand in day-to-day life; this will be indicated by score of 2 or less out of 10 on the Pain Assessment Grid . Assessment/Plan Assessment Treatment Assessment Morales is a 34 y.o. right hand dominant male referred to outpatient OT by his PCP, Dolores Hawk MD, secondary to unspecified injury to the left wrist. Diagnostic information available to therapist: Hand MRI 06/13/20 Findings: Chronic low-grade sprain of the ulnar collateral ligament at the 1st metacarpophalangeal joint without discontinuity of the ligament fibers. Morales reported having EMG; results not available to therapist and therapist will need to pursue results of the test/findings. 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 Morales was referred to UE rare/endangered species specialist and has follow-up appt to go over findings on July 02. He reported injury to the dorsum of L thumb which he did not previously receive treatment ( he was d/c by PT based on reported lack of need for continued services); he did previously receive PT treatment for presenting condition. Morales denied h/o use of splint. Morales indicated 4/ 10 on the Pain Assessment Grid . 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 Poor stability of MPJ noted w/ slight resistance applied distally to thumb. Tightness w/ tenderness to palpation of thumb add; tendency towards flexion of IP joint of L thumb w/ lateral pinch. Minor hyperextension of MPJ noted. Weakness w/ thumb add and radial thumb add. Weakness w/ thumb flex. 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 Education provided for CMC ROM versus obtaining ROM for grasping at the MPJ given laxity. Outpatient OT is recommended to address areas of concern and to support Morales's ability to engage in meaningful activities with active incorporation of non-dominant left hand. Based on referring diagnosis therapist may need to ask for inclusion of elbow if compression of the ulnar nerve was found to be at elbow level given that current referral is for unspecified injury of the left wrist. In addition, given that Morales is being followed by UE orthopedic surgeon, therapist will likely have to adjust treatment plan. Plan Comment 10 weeks Treatment Frequency Once a Week Therapeutic Contents Active Range of Motion, Adaptive Equipment Education, Client Education,Cognitive Skills Development,Functional Activities,Home Exercise Program,Joint Protection, Manual Therapy,Education, Neurodevelopment Treatment, Neuromuscular Re-Education, Self-Care,Stretching/ Flexibility Activities, Therapeutic Activities, Therapeutic Exercises, Modalities Types of Modalities Contrast Bath,E-Stim, Functional Stimulation (FES), Ice Massage,T.E.N. Stimulation ,TENS Placement/Application, Ultrasound Additional Types of Modalities Heat Patient Instruction Home Exercise Program,Plan of Care,Questions/Concerns Sensory Assessment Sensory Profile2 Functional Wrist/Hand Scan Hand Side OT Outpatient Treatment Note - Adult Start: 06/27/20 16:53 Freq: Status: Active Protocol: Document 10/01/20 11:10 [facility] (Rec: 10/01/20 11:16 [facility] [id number]) OT Outpatient Adult Treatment Note Session Time Visit Start Time 11:10 Visit Information Plan of Care Dates 06/20/20-09/12/20 Insurance Information [facility] Setting Treatment Setting Outpatient Care Visit Type Note Type Discharge Summary General Information General Information Morales is a 34 y.o. right hand dominant male referred to outpatient OT by his PCP, Dolores Hawk MD, secondary to unspecified injury to the left wrist. Diagnostic information available to therapist: Hand MRI 06/13/20 Findings: Chronic low-grade sprain of the ulnar collateral ligament at the 1st metacarpophalangeal joint without discontinuity of the ligament fibers. Morales reported having EMG; results not available to therapist and therapist will need to pursue results of the test/findings. 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 Morales was referred to rare/endangered species specialist and has follow-up appt to go over findings on July 02. He reported injury to the dorsum of L thumb which he did not previously receive treatment ( he was d/c by PT based on reported lack of need for continued services); he did previously receive PT treatment for presenting condition. Morales denied h/o use of splint. Morales indicated 4/ 10 on the Pain Assessment Grid . 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 Poor stability of MPJ noted w/ slight resistance applied distally to thumb. Tightness w/ tenderness to palpation of thumb add; tendency towards flexion of IP joint of L thumb w/ lateral pinch. Minor hyperextension of MPJ noted. Weakness w/ thumb add and radial thumb add. Weakness w/ thumb flex. 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 Education provided for CMC ROM versus obtaining ROM for grasping at the MPJ given laxity. - Subjective Identification Type Name Identification Reconciled With Medical Record Observations Patient has not been seen in the outpatient clinic since and the outpatient OT POC 09/12/20. Patient has also been discharged from Dr. Meeks w/ no need for pursuit of additional diagnostic imaging and/or less conservative approach to treatment relative to management of presenting symptoms (e.g., surgery). Patient reportedly was also seeing PCP 08/25/20 in which further recommendations would have been made by PCP relative to need for continuing outpatient services. Given this information and that the patient is modified independent with home exercise program, including awareness of avoidance of repetitive movement patterns, avoiding positions of deformity w/ thumb, and hand strengthening exercises, it is recommended that patient be d/c from outpatient OT. Patient/Caregiver Compliance with Home Excellent Exercise Program - Objective Objective Measurements Please refer to below for progress towards meeting established goals. 08/04/20: Dynamometer avg 85.0 # of force L end trimmer; avg 90.0# of force R end trimmer. Pinchometer: avg 14.7# of force L lateral miller pinch; avg 16.3# of force R lateral miller pinch. Avg 10.3# of force 10.3# of force L tip pinch; avg 11.7# of force R tip pinch. Avg 13.3# of force L 3-jaw grasp; avg 14.5# of force R 3-jaw grasp. Norms when compared to same- aged 35 to 39 y.o. male peers: 112.9 +/- 27.7# of force (L end trimmer slightly > 1 SD below the mean compared to initial avg of 77.7# of force); 119.7 +/- 24.0# of force (R end trimmer within 1 SD below the mean); 25.6 +/- 3.9# of force (L lateral miller pinch > 2 SD below the mean); 26.1 +/- 3.2# of force (R lateral miller pinch > 3 SD below the mean); 17.7 +/- 3.8# of force (L tip pinch > 1 SD below the mean); 18.0 +/- 3.6# of force (R tip pinch > 1 SD below the mean); 25.9 +/- 5.4# of force (L 3-jaw pinch > 2 SD below the mean); 26.2 +/- 4 .1# of force (R 3-jaw pinch > 2 SD below the mean). 07/21/20: Wrist MMT: R wrist flex 5/5; R wrist ext 5/5; R wrist RD 5/5; R wrist UD 5/5; L wrist flex 4+/5; L wrist ext 4/5; L wrist RD 4+/5; L wrist UD 4/5 Short Term Goals GOALS MET L wrist flex 5/5 MMT; L wrist ext 5/5 MMT. *MET 08/25/[address] 5/5 MMT; L wrist UD 5/5 MMT. *MET 08/25/20 Map Editor Goals GOALS MET *08/25/20 Patient will be modified independent with execution of home exercise program utilizing provided written and visual instructions from therapist. Patient will present with increased ability to engage in meaningful tasks with active engagement of the L hand ( relative to vocational tasks); this will be based on self, report. Patient will report no restrictions relative to use of the L hand while completing vocational tasks (e.g., wood work/stabilizing plank). GOALS MET Decreased pain/discomfort; obtained a score of 2 or less out of 10 on the Pain Assessment Grid. *MET 08/25/20 - - Assessment Assessment of Improvement Patient has not been seen in the outpatient clinic since and the outpatient OT POC 09/12/20. Patient has also been discharged from Dr. Meeks w/ no need for pursuit of additional diagnostic imaging and/or less conservative approach to treatment relative to management of presenting symptoms (e.g., surgery). Patient reportedly was also seeing PCP 08/25/20 in which further recommendations would have been made by PCP relative to need for continuing outpatient services. Given this information and that the patient is modified independent with home exercise program, including awareness of avoidance of repetitive movement patterns, avoiding positions of deformity w/ thumb, and hand strengthening exercises, it is recommended that patient be d/c from outpatient OT. - Plan Therapy Recommendations Discharge from Occupational Therapy
== END 2020-10-03 13:25 ==
LOC: OT 07:30
PROVIDERS: PCP Nurse Practitioner Family; Referring Provider Nurse Practitioner Family; Visit Provider Nurse Practitioner Family
DX: S69.92XA Unspecified injury of left wrist, hand and finger(s), initial encounter (principal)
CPT/HCPCS: 97035; 97110; 97140; 97165